=== PATIENT | male | born 1970 | race Caucasian/White ===

== ENCOUNTER 2019-09-26 16:43 | Observation (INO) | payer BC ==
[2019-09-26] MEDS ORDERED: ASPIRIN 81 MG PO STA (17:17)
[2019-09-26] MEDS ORDERED: SODIUM CHLORIDE 0.9% 500 ML 500 ML IV STA (17:17)
[2019-09-26 17:31] LABS: Basophils # (A) 0.2 k/uL (0-0.2); Basophils % (A) 3 %; Eosinophils # (A) 0.3 k/uL (0-0.7); Eosinophils % (A) 3 %; HCT 47.8 % (39.0-53.0); HGB 15.8 gm/dL (13.0-17.5); Lymphocytes # (A) 2.6 k/uL (1.0-4.8); Lymphocytes % (A) 28 %; MCH 31.1 pg (25.0-35.0); MCHC 32.9 g/dL (31.0-37.0); MCV 94.5 fL (80.0-100.0); Mean Platelet Volume 7.4; Monocytes # (A) 0.7 k/uL (0-1.0); Monocytes % (A) 7 %; Neutrophils # (A) 5.1 k/uL (1.3-7.7); Neutrophils % (A) 56 %; Platelet Count 315 k/uL (150-450); RBC 5.06 m/uL (4.30-5.90); RDW 12.7 % (11.5-15.5); WBC 9.1 k/uL (3.8-10.6)
--- NOTE | 2019-09-26 17:35 | ED ---
General Adult HPI - General Chief complaint: Chest Pain Stated complaint: high blood pressure/sob Time Seen by Provider: 09/26/19 17:03 Source: patient Mode of arrival: ambulatory Limitations: no limitations - History of Present Illness Initial comments: 49-year-old male patient presents to the emergency department today for evaluation of elevated blood pressure, dizziness, and generalized weakness. Patient states that he has been feeling unwell for the last couple of days. States he noticed his blood pressure was high. States that he did see his primary care physician this morning he started on additional blood pressure medication, lisinopril 5 mg. Patient states this did lower his blood pressure. Short time but that went right back up. Patient states he is having some mild chest tightness, pain to the left shoulder, and pain radiating down the left arm. He is reporting some tingling to his fingers. States he is having some mild shortness of breath with this and is reporting nausea. Patient denies any recent rash, fever, chills, abdominal pain, diarrhea, constipation, back pain, numbness, tingling, hematuria, dysuria, urinary urgency, urinary frequency, headache, visual changes, or any other complaints. - Related Data Allergies Allergy/AdvReac Type Severity Reaction Status Date / Time Sulfa (Sulfonamide Allergy Rash/Hives Verified 09/26/19 19:11 Antibiotics) Review of Systems ROS Statement: Those systems with pertinent positive or pertinent negative responses have been documented in the HPI. ROS Other: All systems not noted in ROS Statement are negative. Past Medical History Past Medical History: Hypertension History of Any Multi-Drug Resistant Organisms: None Reported Past Surgical History: No Surgical Hx Reported Past Psychological History: No Psychological Hx Reported Smoking Status: Never smoker Past Alcohol Use History: Occasional Past Drug Use History: None Reported General Exam Limitations: no limitations General appearance: alert, in no apparent distress, other (Physical well- developed, well-nourished adult male patient in no acute distress. Vital signs upon presentation are temperature 98.7F, pulse 72, respirations 16, blood pressure 178/99, pulse ox 97% on room air.) Eye exam: Present: normal appearance, PERRL, EOMI. Absent: scleral icterus, conjunctival injection, periorbital swelling ENT exam: Present: normal exam, normal oropharynx, mucous membranes moist Respiratory exam: Present: normal lung sounds bilaterally. Absent: respiratory distress, wheezes, rales, rhonchi, stridor Cardiovascular Exam: Present: regular rate, normal rhythm, normal heart sounds. Absent: systolic murmur, diastolic murmur, rubs, gallop, clicks GI/Abdominal exam: Present: soft, normal bowel sounds. Absent: distended, tenderness, guarding, rebound, rigid Neurological exam: Present: alert, oriented X3, CN II-XII intact Psychiatric exam: Present: normal affect, normal mood Skin exam: Present: warm, dry, intact, normal color. Absent: rash Course Vital Signs 09/26/19 09/26/19 16:46 18:32 Temperature 98.7 F Pulse Rate 72 58 L Respiratory 16 18 Rate Blood Pressure 178/99 131/87 O2 Sat by Pulse 97 96 Oximetry EKG Findings - EKG Comments: EKG Findings:: EKG obtained at 1658 shows sinus rhythm with PACs, PVC, ventricular rate is 71, RI interval 134, QRS duration 96, QT 406, QTc 441. There is mild ST depression noted in V2 and V3, ST elevation noted in aVR. No previous for comparison. Medical Decision Making - Medical Decision Making 49-year-old male patient presents to the emergency department today for evaluation of chest tightness, left shoulder pain, shortness of breath, dizziness. Patient also reports feeling rundown. Labs reviewed and are relatively unremarkable. Potassium was 3.1 and we did replace this orally. We will give 1 inch of Nitropaste. So GI prophylaxis. He'll be admitted for serial troponins and evaluation by cardiology in the morning. - Lab Data Result diagrams: 09/26/19 17:10 09/26/19 17:10 Lab Results 09/26/19 09/26/19 09/26/19 Range/Units 17:10 17:10 17:10 WBC 9.1 (3.8-10.6) k/uL RBC 5.06 (4.30-5.90) m/uL Hgb 15.8 (13.0-17.5) gm/dL Hct 47.8 (39.0-53.0) % MCV 94.5 (80.0-100.0) fL MCH 31.1 (25.0-35.0) pg MCHC 32.9 (31.0-37.0) g/dL RDW 12.7 (11.5-15.5) % Plt Count 315 (150-450) k/uL Neutrophils % 56 % Lymphocytes % 28 % Monocytes % 7 % Eosinophils % 3 % Basophils % 3 % Neutrophils # 5.1 (1.3-7.7) k/uL Lymphocytes # 2.6 (1.0-4.8) k/uL Monocytes # 0.7 (0-1.0) k/uL Eosinophils # 0.3 (0-0.7) k/uL Basophils # 0.2 (0-0.2) k/uL PT 9.8 (9.0-12.0) sec INR 0.9 (<1.2) APTT 22.9 (22.0-30.0) sec Sodium 137 (137-145) mmol/L Potassium 3.1 L (3.5-5.1) mmol/L Chloride 97 L (98-107) mmol/L Carbon Dioxide 32 H (22-30) mmol/L Anion Gap 8 mmol/L BUN 15 (9-20) mg/dL Creatinine 0.98 (0.66-1.25) mg/dL Est GFR (CKD-EPI)AfAm >90 (>60 ml/min/1.73 sqM) Est GFR (CKD-EPI)NonAf 90 (>60 ml/min/1.73 sqM) Glucose 120 H (74-99) mg/dL Calcium 9.7 (8.4-10.2) mg/dL Magnesium 2.0 (1.6-2.3) mg/dL Total Bilirubin 0.6 (0.2-1.3) mg/dL AST 48 (17-59) U/L ALT 59 H (4-49) U/L Alkaline Phosphatase 68 (38-126) U/L Troponin I (0.000-0.034) ng/mL Total Protein 7.6 (6.3-8.2) g/dL Albumin 4.4 (3.5-5.0) g/dL Urine Color Urine Appearance (Clear) Urine pH (5.0-8.0) Ur Specific [place] (1.001-1.035) Urine Protein (Negative) Urine Glucose (UA) (Negative) Urine Ketones (Negative) Urine Blood (Negative) Urine Nitrite (Negative) Urine Bilirubin (Negative) Urine Urobilinogen (<2.0) mg/dL Ur Leukocyte Esterase (Negative) Urine RBC (0-5) /hpf Ur Squamous Epith Cells (0-4) /hpf Amorphous Sediment (None) /hpf 09/26/19 09/26/19 Range/Units 17:10 17:10 WBC (3.8-10.6) k/uL RBC (4.30-5.90) m/uL Hgb (13.0-17.5) gm/dL Hct (39.0-53.0) % MCV (80.0-100.0) fL MCH (25.0-35.0) pg MCHC (31.0-37.0) g/dL RDW (11.5-15.5) % Plt Count (150-450) k/uL Neutrophils % % Lymphocytes % % Monocytes % % Eosinophils % % Basophils % % Neutrophils # (1.3-7.7) k/uL Lymphocytes # (1.0-4.8) k/uL Monocytes # (0-1.0) k/uL Eosinophils # (0-0.7) k/uL Basophils # (0-0.2) k/uL PT (9.0-12.0) sec INR (<1.2) APTT (22.0-30.0) sec Sodium (137-145) mmol/L Potassium (3.5-5.1) mmol/L Chloride (98-107) mmol/L Carbon Dioxide (22-30) mmol/L Anion Gap mmol/L BUN (9-20) mg/dL Creatinine (0.66-1.25) mg/dL Est GFR (CKD-EPI)AfAm (>60 ml/min/1.73 sqM) Est GFR (CKD-EPI)NonAf (>60 ml/min/1.73 sqM) Glucose (74-99) mg/dL Calcium (8.4-10.2) mg/dL Magnesium (1.6-2.3) mg/dL Total Bilirubin (0.2-1.3) mg/dL AST (17-59) U/L ALT (4-49) U/L Alkaline Phosphatase (38-126) U/L Troponin I <0.012 (0.000-0.034) ng/mL Total Protein (6.3-8.2) g/dL Albumin (3.5-5.0) g/dL Urine Color Light Yellow Urine Appearance Clear (Clear) Urine pH 7.0 (5.0-8.0) Ur Specific [place] 1.005 (1.001-1.035) Urine Protein Negative (Negative) Urine Glucose (UA) Negative (Negative) Urine Ketones Negative (Negative) Urine Blood Moderate (Negative) Urine Nitrite Negative (Negative) Urine Bilirubin Negative (Negative) Urine Urobilinogen 0.2 (<2.0) mg/dL Ur Leukocyte Esterase Negative (Negative) Urine RBC 10 H (0-5) /hpf Ur Squamous Epith Cells <1 (0-4) /hpf Amorphous Sediment Rare H (None) /hpf - Radiology Data Radiology results: report reviewed, image reviewed Two-view x-ray of the chest is obtained. Report is reviewed in its entirety. Impression by Dr. Metz shows normal chest Disposition Clinical Impression: Chest pain, Dizziness Disposition: ADMITTED IP TO THIS [facility] Condition: Serious Referrals: Patrick Lopes DO [Primary Care Provider] - 1-2 days Decision to Admit Reason: Admit from EC Decision Date: 09/26/19 Decision Time: 19:15
[2019-09-26 17:39] LABS: INR 0.9 (<1.2); Partial Thromboplastin Time 22.9 sec (22.0-30.0); Prothrombin Time 9.8 sec (9.0-12.0)
[2019-09-26 17:41] LABS: ALT 59 U/L (4-49); AST 48 U/L (17-59); African American GFR (CKD) >90 (>60 ml/min/1.73 sqM); Albumin 4.4 g/dL (3.5-5.0); Alkaline Phosphatase 68 U/L (38-126); Anion Gap 8 mmol/L; Blood Urea Nitrogen 15 mg/dL (9-20); Calcium 9.7 mg/dL (8.4-10.2); Carbon Dioxide 32 mmol/L (22-30); Chloride 97 mmol/L (98-107); Glucose 120 mg/dL (74-99); Non-African American GFR(CKD) 90 (>60 ml/min/1.73 sqM); Potassium 3.1 mmol/L (3.5-5.1); Sodium 137 mmol/L (137-145); Total Bilirubin 0.6 mg/dL (0.2-1.3); Total Protein 7.6 g/dL (6.3-8.2)
--- NOTE | 2019-09-26 17:49 | XR ---
EXAMINATION TYPE: XR chest 2V DATE OF EXAM: 09/26/2019 COMPARISON: NONE HISTORY: Chest pain TECHNIQUE: FINDINGS: Heart and mediastinum are normal. Lungs are clear. Diaphragm is normal. Bony thorax appears normal. Pulmonary vascularity is normal. There are chest leads. IMPRESSION: Normal chest
[2019-09-26 18:01] LABS: Amorphous Sediment,Urine Rare /hpf; RBC,Urine 10 /hpf (0-5); Squamous Epithelial Cell,Urine <1 /hpf (0-4)
[2019-09-26] MEDS ORDERED: POTASSIUM CHLORIDE ER 20 MEQ TAB.ER PO STA (18:04)
[2019-09-26 18:07] LABS: Color,Urine Light Yellow
[2019-09-26 18:08] LABS: Appearance,Urine Clear (Clear); Bilirubin,Urine Negative (Negative); Blood,Urine Moderate (Negative); Glucose,Urine (UA) Negative (Negative); Ketones,Urine Negative (Negative); Leukocyte Esterase,Urine Negative (Negative); Nitrite,Urine Negative (Negative); Protein,Urine Negative (Negative); Specific Gravity,Urine 1.005 (1.001-1.035); Urobilinogen,Urine 0.2 mg/dL (<2.0)
[2019-09-26] MEDS ORDERED: MORPHINE SULFATE 4 MG/ML SYRINGE IV PRN (19:10)
[2019-09-26] MEDS ORDERED: NALOXONE 0.4 MG/ML 1 ML VIAL IV PRN (19:10)
[2019-09-26] MEDS ORDERED: NITROGLYCERIN OINT 1 INCH/GM PACKET TOPICAL STA (19:13)
[2019-09-27] MEDS ORDERED: FAMOTIDINE 20 MG/2 ML VIAL IV SCH (09:00)
--- NOTE | 2019-09-27 12:05 | P.CRDCN ---
<Kelsie Chowdhury - Last Filed: 09/27/19 12:05> History of Present Illness History of present illness: This is Kelsie Chowdhury PA-C dictating a consult on this patient The patient was interviewed and examined by me as well as by Dr. Medina Case discussed with Dr. Medina and he agrees with the plan of care HPI Patient is a 49-year-old male with a past medical history significant for hypertension, borderline diabetes who presented with complaints of dizziness. 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 For the last several weeks he has been more short of breath on exertion such as with climbing the stairs. He also notes that he has been exercising and for the first 7-10 minute of his exercise he feels like he can't catch his breath. The feelings resolve as he continues to exercise. He doesn't have any chest pain with exertion. He was in religious on Thursday when he experienced the sudden onset of dizziness and lightheadedness. His vision started to blurring he felt like he was going to pass out but he didn't. No associated palpitations, shortness of breath or chest pain. He did feel a little nauseous. He had felt like this one time before when he was dehydrated. He went home and checked his blood pressure and it was "normal" and then he drank lots of water. He continued to feel "off" and checked his blood pressure again and this time it was elevated. He went to see his primary care doctor yesterday and he was started on lisinopril 5 mg. He was instructed to come to the emergency department if he didn't feel better after starting the new blood pressure medication. He decided to come to the emergency department for further evaluation. On his way to the emergency department, he started to experience left-sided shoulder pain with radiation down the left arm and tingling in his fingers. Symptoms resolved by the time he got emergency department. Upon presentation to the emergency department he was afebrile, pulse in the 70s, respirations 16, blood pressure in the 170s over 90s, oxygen saturation 97% on room air. EKG shows sinus mechanism with T-wave inversions and 0.[address] depressions in the precordial leads, nonspecific T wave changes inferiorly. Chest x-ray showed no acute process. Labs are significant for potassium of 3.1, troponin negative 3. Patient seen and examined in the emergency department. States his symptoms have completely resolved. Denies any chest pain, shortness of breath, dizziness, shoulder or arm pain. He is a lifelong smoker, denies dyslipidemia or family history of heart disease ROS: No fevers, chills or rigors, no cough, phlegm or expectoration, Positive for nausea, no vomiting or diarrhea, no hematuria, dysuria, no musculoskeletal complaints, no strokes or seizures, no skin lesions. EXAMINATION: Patient is afebrile, pulse in the 50s, respirations 16, blood pressure 110/70, oxygen saturation 97% on room air Patient seen and examined resting in bed, in no acute distress Lungs are clear to auscultation bilaterally, no wheezing rhonchi or crackles Heart is regular, S1 and S2 heard, no audible murmurs No lower extremity edema No visibly elevated JVD REVIEW OF LABS, ECG & MEDICAL DATA WBC 9.1, hemoglobin 15.8, platelets 315, potassium 3.1, BUN 15, creatinine 0.9, ALT 59 IMPRESSION / ASSESSMENT: Progressive dyspnea on exertion over the last few months Presyncopal episode, likely vasovagal Hypertension, blood pressure elevated upon presentation to the emergency department but is currently within normal limits Prediabetic PLAN: Check lipid panel Hemoglobin A1c He has a stress test scheduled as an outpatient for this Thursday, will complete his stress test here, further recommendations to follow Past Medical History Past Medical History: Hypertension History of Any Multi-Drug Resistant Organisms: None Reported Past Surgical History: No Surgical Hx Reported Past Psychological History: No Psychological Hx Reported Smoking Status: Never smoker Past Alcohol Use History: Occasional Past Drug Use History: None Reported Medications and Allergies Home Medications Medication Instructions Recorded Confirmed Type Chlorthalidone 25 mg PO DAILY 09/26/19 09/26/19 History Fluticasone Nasal [place] [Flonase 2 spr EA NOSTRIL DAILY PRN 09/26/19 09/26/19 History Nasal [place]] Lisinopril [Zestril] 5 - 10 mg PO DAILY 09/26/19 09/26/19 History Loratadine 10 mg PO DAILY 09/26/19 09/26/19 History Metaboup Plus 1 tab PO DAILY 09/26/19 09/26/19 History Multivitamins, Thera [Multivitamin 1 tab PO DAILY 09/26/19 09/26/19 History (formulary)] Testosterone Booster 1 tab PO DAILY 09/26/19 09/26/19 History Allergies Allergy/AdvReac Type Severity Reaction Status Date / Time Sulfa (Sulfonamide Allergy Rash/Hives Verified 09/26/19 19:11 Antibiotics) Physical Exam Vitals: Vital Signs Temp Pulse Resp BP Pulse Ox 09/27/19 08:14 97.6 F 56 L 16 110/70 97 09/27/19 06:09 98.1 F 55 L 16 116/67 97 09/27/19 03:00 58 L 16 112/76 97 09/26/19 23:00 61 16 115/66 94 L 09/26/19 21:53 77 18 135/56 95 09/26/19 20:14 65 16 118/52 95 09/26/19 19:47 63 18 116/44 97 09/26/19 18:32 58 L 18 131/87 96 09/26/19 16:46 98.7 F 72 16 178/99 97 Intake and Output 09/26/19 09/27/19 09/27/19 22:59 06:59 14:59 Intake Total 480 Balance 480 Intake: Intake, IV Titration 0 Amount Sodium Chloride 0.9% 500 0 ml 500 ml @ 999 mls/hr IV .Q31M STA Rx#:[id number] Oral 480 Blood Product 0 Other: # Voids 1 Weight 113.398 kg Results 09/26/19 17:10 09/26/19 17:10 Cardiac Enzymes 09/26/19 09/26/19 09/26/19 Range/Units 17:10 17:10 23:32 AST 48 (17-59) U/L Troponin I <0.012 <0.012 (0.000-0.034) ng/mL 09/27/19 Range/Units 06:25 AST (17-59) U/L Troponin I <0.012 (0.000-0.034) ng/mL Coagulation 09/26/19 Range/Units 17:10 PT 9.8 (9.0-12.0) sec APTT 22.9 (22.0-30.0) sec CBC 09/26/19 Range/Units 17:10 WBC 9.1 (3.8-10.6) k/uL RBC 5.06 (4.30-5.90) m/uL Hgb 15.8 (13.0-17.5) gm/dL Hct 47.8 (39.0-53.0) % Plt Count 315 (150-450) k/uL Comprehensive Metabolic Panel 09/26/19 Range/Units 17:10 Sodium 137 (137-145) mmol/L Potassium 3.1 L (3.5-5.1) mmol/L Chloride 97 L (98-107) mmol/L Carbon Dioxide 32 H (22-30) mmol/L BUN 15 (9-20) mg/dL Creatinine 0.98 (0.66-1.25) mg/dL Glucose 120 H (74-99) mg/dL Calcium 9.7 (8.4-10.2) mg/dL AST 48 (17-59) U/L ALT 59 H (4-49) U/L Alkaline Phosphatase 68 (38-126) U/L Total Protein 7.6 (6.3-8.2) g/dL Albumin 4.4 (3.5-5.0) g/dL Current Medications Generic Name Dose Route Start Last Admin Trade Name Freq PRN Reason Stop Dose Admin Famotidine 20 mg 09/27/19 09:00 09/27/19 09:07 Pepcid IV 20 mg DAILY BETHANY Administration Morphine Sulfate 4 mg 09/26/19 19:10 Morphine Sulfate (Inj) IV Q4HR PRN Severe Pain Naloxone HCl 0.2 mg 09/26/19 19:10 Narcan IV Q2M PRN Opioid Reversal Intake and Output 09/26/19 09/27/19 09/27/19 22:59 06:59 14:59 Intake Total 480 Balance 480 Intake: Intake, IV Titration 0 Amount Sodium Chloride 0.9% 500 0 ml 500 ml @ 999 mls/hr IV .Q31M STA Rx#:[id number] Oral 480 Blood Product 0 Other: # Voids 1 Weight 113.398 kg 09/26/19 17:10 09/26/19 17:10 <Deng Medina - Last Filed: 09/27/19 12:07> History of Present Illness History of present illness: Patient interviewed and examined Discussed with Kelsie Chowdhury PAC Patient was in religious when he became nauseous and dizzy and lightheaded He's had a similar episode in religious before He's had a similar episode coming out of the sauna and when he was dehydrated ECG shows borderline ST segment depression in the precordial leads consistent with voltage abnormalities from hypertension Likely uncontrolled hypertension Usual blood pressure at home is around 150/88 mmHg Prediabetes Increased BMI Plan Exercise stress echo with Definity contrast Lipid panel Hemoglobin A1c Avoid diuretics Discontinue nitrates Treat hypertension with split doses of lisinopril Explained to the patient that his symptoms are consistent with vasovagal syncope Please see full dictation by Kelsie Chowdhury Physical Exam Vitals: Vital Signs Temp Pulse Resp BP Pulse Ox 09/27/19 08:14 97.6 F 56 L 16 110/70 97 09/27/19 06:09 98.1 F 55 L 16 116/67 97 09/27/19 03:00 58 L 16 112/76 97 09/26/19 23:00 61 16 115/66 94 L 09/26/19 21:53 77 18 135/56 95 09/26/19 20:14 65 16 118/52 95 09/26/19 19:47 63 18 116/44 97 09/26/19 18:32 58 L 18 131/87 96 09/26/19 16:46 98.7 F 72 16 178/99 97 Intake and Output 09/26/19 09/27/19 09/27/19 22:59 06:59 14:59 Intake Total 480 Balance 480 Intake: Intake, IV Titration 0 Amount Sodium Chloride 0.9% 500 0 ml 500 ml @ 999 mls/hr IV .Q31M STA Rx#:[id number] Oral 480 Blood Product 0 Other: # Voids 1 Weight 113.398 kg Results 09/26/19 17:10 09/26/19 17:10 Cardiac Enzymes 09/26/19 09/26/19 09/26/19 Range/Units 17:10 17:10 23:32 AST 48 (17-59) U/L Troponin I <0.012 <0.012 (0.000-0.034) ng/mL 09/27/19 Range/Units 06:25 AST (17-59) U/L Troponin I <0.012 (0.000-0.034) ng/mL Coagulation 09/26/19 Range/Units 17:10 PT 9.8 (9.0-12.0) sec APTT 22.9 (22.0-30.0) sec CBC 09/26/19 Range/Units 17:10 WBC 9.1 (3.8-10.6) k/uL RBC 5.06 (4.30-5.90) m/uL Hgb 15.8 (13.0-17.5) gm/dL Hct 47.8 (39.0-53.0) % Plt Count 315 (150-450) k/uL Comprehensive Metabolic Panel 09/26/19 Range/Units 17:10 Sodium 137 (137-145) mmol/L Potassium 3.1 L (3.5-5.1) mmol/L Chloride 97 L (98-107) mmol/L Carbon Dioxide 32 H (22-30) mmol/L BUN 15 (9-20) mg/dL Creatinine 0.98 (0.66-1.25) mg/dL Glucose 120 H (74-99) mg/dL Calcium 9.7 (8.4-10.2) mg/dL AST 48 (17-59) U/L ALT 59 H (4-49) U/L Alkaline Phosphatase 68 (38-126) U/L Total Protein 7.6 (6.3-8.2) g/dL Albumin 4.4 (3.5-5.0) g/dL Current Medications Generic Name Dose Route Start Last Admin Trade Name Ronnieq PRN Reason Stop Dose Admin Famotidine 20 mg 09/27/19 09:00 09/27/19 09:07 Pepcid IV 20 mg DAILY BETHANY Administration Morphine Sulfate 4 mg 09/26/19 19:10 Morphine Sulfate (Inj) IV Q4HR PRN Severe Pain Naloxone HCl 0.2 mg 09/26/19 19:10 Narcan IV Q2M PRN Opioid Reversal Intake and Output 09/26/19 09/27/19 09/27/19 22:59 06:59 14:59 Intake Total 480 Balance 480 Intake: Intake, IV Titration 0 Amount Sodium Chloride 0.9% 500 0 ml 500 ml @ 999 mls/hr IV .Q31M STA Rx#:[id number] Oral 480 Blood Product 0 Other: # Voids 1 Weight 113.398 kg 09/26/19 17:10 09/26/19 17:10
[2019-09-27 12:10] LABS: Cholesterol 173 mg/dL (<200); HDL Cholesterol 45 mg/dL (40-60); LDL Cholesterol,Calculated 96 mg/dL (0-99); Triglycerides 161 mg/dL (<150)
[2019-09-27 13:06] VITALS: RESP 18
[2019-09-27] MEDS ORDERED: FLUTICASONE 50MCG/SPRAY NASAL 16GM EA NOSTRIL PRN (19:01)
[2019-09-27] MEDS ORDERED: ALPRAZolam 0.25 MG TAB PO PRN (19:19)
[2019-09-27] MEDS ORDERED: TEMAZEPAM 15 MG CAP PO PRN (19:19)
[2019-09-27] MEDS ORDERED: ACETAMINOPHEN TAB 500 MG TAB PO PRN (19:19)
--- NOTE | 2019-09-27 20:47 | HP ---
HISTORY AND PHYSICAL DATE OF SERVICE: 09/27/2019 CHIEF COMPLAINT: Chest pain. HISTORY OF PRESENT ILLNESS: This 49-year-old gentleman with a past medical history of multiple medical problems, including hypertension, history of vasectomy, history of LASIK eye surgery, being followed by Dr. Patrick Lopes in the outpatient setting, was complaining of chest pain. The pain was mostly situated in the left side of the chest. The patient also had elevated blood pressure, dizziness and some generalized weakness. The patient had some left arm discomfort, also. The patient came to [facility] and was admitted for further evaluation and treatment. There is no history of any associated sweating or palpitations. No history of radiation of pain elsewhere. At the time of admission the patient was found to have hypokalemia. Otherwise CO2 was 32. ALT was 59. Troponins were negative. Triglycerides 161. UA showed 10 RBCs. The patient also had EKG which was reviewed and showed occasional PVCs and some ST-T changes. There is no history of any fever, rigor or chills. No history of headache, loss of consciousness, seizures at this time. PAST MEDICAL HISTORY: History of hypertension, history of vasectomy. HOME MEDICATIONS: 1. Zestril 5 to 10 mg p.o. daily. 2. Multivitamins 1 p.o. daily. 3. Flonase 2 sprays daily p.r.n. 4. Chlorthalidone 25 mg p.o. daily. 5. Testosterone booster 1 p.o. daily. 6. Metaboup Plus 1 p.o. daily. 7. Loratadine 10 mg p.o. daily. ALLERGIES: SULFA. FAMILY HISTORY: No history of heart disease or strokes in the family. SOCIAL HISTORY: No history of smoking. Occasional alcohol intake. REVIEW OF SYSTEMS: ENT: No diminished hearing. No diminished vision. CARDIOVASCULAR SYSTEM: As mentioned earlier. RESPIRATORY SYSTEM: As mentioned earlier. GI: No nausea, vomiting. : No dysuria or retention. NERVOUS SYSTEM: No numbness, weakness. ALLERGY/IMMUNOLOGY: No asthma, hayfever. MUSCULOSKELETAL: As mentioned earlier. HEMATOLOGY/ONCOLOGY: No history of anemia. ENDOCRINE: No history of diabetes, hypothyroidism. CONSTITUTIONAL: As mentioned earlier. DERMATOLOGY: Negative. RHEUMATOLOGY: Negative. PSYCHIATRY: As mentioned earlier. PHYSICAL EXAMINATION: Patient is alert, oriented x3. Pulse is 60, blood pressure 120/76, respiration 18, temperature 98.2, pulse ox 94% on room air. HEENT: Conjunctivae normal. NECK: No jugular venous distention. CARDIOVASCULAR SYSTEM: S1, S2 muffled. RESPIRATORY SYSTEM: Breath sounds diminished at the bases. A few scattered rhonchi and crackles. ABDOMEN: Soft, non-tender. No mass palpable. LEGS: No edema. No swelling. NERVOUS SYSTEM: Higher functions as mentioned earlier. Moves all 4 limbs. No focal motor or sensory deficit. LYMPHATICS: No lymph node palpable in neck, axillae or groin. SKIN: No ulcer, rash, bleeding. JOINTS: No active deforming arthropathy. LABS: Labs at this time show CBC within normal limits. Sodium 137, potassium 3.1. CO2 is 32. ASSESSMENT: 1. Chest pain; possible unstable angina. 2. History of ST-T changes on the EKG. 3. Shortness of breath and dizziness for evaluation. 4. Increased ALT. 5. Increased random blood sugar. 6. Hypokalemia. 7. History of hypertension. 8. History of vasectomy. 9. Obesity with body mass index of 34.9. 10.FULL CODE. RECOMMENDATIONS AND DISCUSSION: In this 49-year-old gentleman who presented with multiple complex medical issues, we will monitor the patient closely, continue the current medications, continue with symptomatic treatment. Will follow closely with Cardiology. The patient had some ST-T changes. Initial troponins were negative. Unstable angina protocol. Patient would require either a stress test or cardiac cath. Will follow the patient closely with Cardiology. Further recommendations to follow. A chest x-ray was also done which did not show any acute abnormality. Will continue to monitor. Further recommendations to follow. I would also recommend a spiral CT of the chest to rule out the possibility of pulmonary embolism. Overall, guarded prognosis because of multiple complex medical issues. A copy of this dictation is being forwarded to Dr. Lopes, who is the primary physician. MMRAMBOL / IJN: [id number] /
[2019-09-27] MEDS: LORATADINE 10 MG TAB PO SCH (21:21)
--- NOTE | 2019-09-27 23:33 | CT ---
EXAMINATION TYPE: CT angio chest DATE OF EXAM: 09/27/2019 COMPARISON: None HISTORY: Patient presents with chest pain. CT DLP: 1020.6 mGycm Automated exposure control for dose reduction was used. CONTRAST: Performed with IV Contrast, patient injected with 60mL mL of Isovue 370. There are 3-D post processed images. FINDINGS: There is some patchy linear density in the lower lung pineda. There is no pleural effusion. There is no evidence of a pulmonary mass. There is no mediastinal adenopathy. There are small paratracheal lym ph nodes that measure up to 6 mm. There are no hilar masses. Thoracic aorta is intact. There is no an eurysm or dissection. There is normal contrast opacification of the pulmonary arteries. I see no fill ing defect. The bony thorax is intact. Upper abdominal soft tissues are intact. IMPRESSION: No evidence of pulmonary embolism. Minimal subsegmental atelectasis at the lung bases.
[2019-09-28 07:12] LABS: Basophils # (A) 0.1 k/uL (0-0.2); Basophils % (A) 1 %; Eosinophils # (A) 0.2 k/uL (0-0.7); Eosinophils % (A) 3 %; HCT 44.7 % (39.0-53.0); Lymphocytes # (A) 2.2 k/uL (1.0-4.8); Lymphocytes % (A) 30 %; MCH 31.5 pg (25.0-35.0); MCHC 33.5 g/dL (31.0-37.0); Mean Platelet Volume 7.3; Monocytes # (A) 0.5 k/uL (0-1.0); Monocytes % (A) 7 %; Neutrophils % (A) 56 %; Platelet Count 296 k/uL (150-450); RBC 4.75 m/uL (4.30-5.90); RDW 12.7 % (11.5-15.5); WBC 7.2 k/uL (3.8-10.6)
[2019-09-28 07:26] VITALS: PULSE 60; TEMP 98.2
[2019-09-28] MEDS ORDERED: PANTOPRAZOLE 40 MG TABLET PO SCH (07:30)
[2019-09-28 07:32] LABS: African American GFR (CKD) >90 (>60 ml/min/1.73 sqM); Anion Gap 8 mmol/L; Blood Urea Nitrogen 16 mg/dL (9-20); Calcium 9.4 mg/dL (8.4-10.2); Carbon Dioxide 30 mmol/L (22-30); Chloride 100 mmol/L (98-107); Glucose 97 mg/dL (74-99); Non-African American GFR(CKD) >90 (>60 ml/min/1.73 sqM); Potassium 3.7 mmol/L (3.5-5.1); Sodium 138 mmol/L (137-145)
[2019-09-28] MEDS ORDERED: MULTIVITAMINS, THERA 1 EACH TAB PO SCH (09:00)
[2019-09-28] MEDS ORDERED: CHLORTHALIDONE 25 MG TAB PO SCH (09:00)
[2019-09-28] MEDS ORDERED: FAMOTIDINE 20 MG TAB PO SCH (09:00)
[2019-09-28] MEDS ORDERED: LISINOPRIL 5 MG TAB PO SCH ×2 (09:00→21:00)
[2019-09-28 11:21] VITALS: BP 131/87
[2019-09-28] MEDS: LORATADINE 10 MG TAB PO SCH (12:00)
--- NOTE | 2019-09-28 12:42 | P.PN ---
Subjective This is a pleasant 49-year-old male past medical history significant for hypertension. He is seen and examined in no acute distress. She has had no further symptoms of dizziness, chest pain or shortness of breath. Blood pressure 131/87 heart rate 60 afebrile maintaining oxygen saturation on room air. Laboratory data reviewed, CBC unremarkable, sodium 138, potassium 3.7, creatinine 0.93, LDL 96, HDL 45, triglycerides 173 and total cholesterol 161. Cardiac enzymes negative 3. Currently maintained on lisinopril 5 mg daily and chlorthalidone 25 mg daily. GENERAL: Well-appearing, well-nourished and in no acute distress. NECK: Supple without JVD or thyromegaly. LUNGS: Breath sounds clear to auscultation bilaterally. Respiration equal and unlabored. No wheezes, rales or rhonchi. HEART: Regular rate and rhythm without murmurs, rubs or gallops. S1 and S2 heard. EXTREMITIES: Normal range of motion, no edema. No clubbing or cyanosis. Peripheral pulses intact. ASSESSMENT Progressive dyspnea on exertion Pre-syncope, vasovagal Hypertension PLAN Stress echocardiogram completed and reviewed. Stable for discharge home, follow up in the office with Dr. Medina in 1-2 weeks. Nurse Practitioner note has been reviewed, I agree with a documented findings and plan of care. Patient was seen and examined. Objective - Vital Signs Vital signs: Vital Signs Temp 98.2 F 09/28/19 11:20 Pulse 60 09/28/19 11:20 Resp 18 09/28/19 11:20 BP 131/87 09/28/19 11:20 Pulse Ox 98 09/28/19 11:20 Intake & Output 09/27/19 09/28/19 09/28/19 18:59 06:59 18:59 Intake Total 1040 Balance 1040 Weight 113.398 kg 113.4 kg Intake: Oral 440 Other 600 Other: Voiding Method Toilet Toilet Toilet # Voids 1 - Labs CBC & Chem 7: 09/28/19 06:25 09/28/19 06:25
--- NOTE | 2019-09-28 13:14 | P.DS ---
Providers Date of admission: 09/26/19 19:12 Attending physician: Ruby aFn Consults: 09/26/19 19:12 Consult Physician Routine Consulting Provider: [facility] Consult Reason/Comments: Chest pain; Dizziness Do you want consulting provider notified?: Yes [facility] Course: Patient was admitted for chest pain rule out acute current syndromes patient will undergo stress test if that's negative patient will be discharged today. Patient was also having dizziness which I believe is secondary to hypotension patient blood pressure is low normal when he was recently started on lisinopril patient blood pressure has calmed down as low as the 100s systolic because of which asked him to check the blood pressure at home take it to PCP and lisinopril will be held the patient is on chlorthalidone for long time which will be continued and agents potassium is low because of chlorthalidone patient will be discharged on 20 mg of potassium. He extensive counseling regarding appropriate way of checking blood pressure was done. PHYSICAL EXAMINATION: GENERAL: The patient is alert and oriented x3, not in any acute distress. Well developed, well nourished. HEENT: Pupils are round and equally reacting to light. EOMI. No scleral icterus. No conjunctival pallor. Normocephalic, atraumatic. No pharyngeal erythema. No thyromegaly. CARDIOVASCULAR: S1 and S2 present. No murmurs, rubs, or gallops. PULMONARY: Chest is clear to auscultation, no wheezing or crackles. ABDOMEN: Soft, nontender, nondistended, normoactive bowel sounds. No palpable organomegaly. MUSCULOSKELETAL: No joint swelling or deformity. EXTREMITIES: No cyanosis, clubbing, or pedal edema. NEUROLOGICAL: Gross neurological examination did not reveal any focal deficits. SKIN: No rashes. Please refer to Dr. Gale's note for further details of hospitalization course and other medical problems that was addressed Patient Condition at Discharge: Serious Plan - Discharge Summary Discharge Rx Participant: No New Discharge Prescriptions: New Potassium Chloride ER [K-Dur 20] 20 meq PO DAILY #30 tab Lisinopril [Zestril] 5 mg PO BID #180 tab Discontinued Chlorthalidone 25 mg PO DAILY Lisinopril [Zestril] 5 - 10 mg PO DAILY No Action Metaboup Plus 1 tab PO DAILY Testosterone Booster 1 tab PO DAILY Fluticasone Nasal [place] [Flonase Nasal [place]] 2 spr EA NOSTRIL DAILY PRN PRN Reason: Allergy Symptoms Loratadine 10 mg PO DAILY Multivitamins, Thera [Multivitamin (formulary)] 1 tab PO DAILY Discharge Medication List Fluticasone Nasal [place] [Flonase Nasal [place]] 2 spr EA NOSTRIL DAILY PRN 09/26/19 [History] Loratadine 10 mg PO DAILY 09/26/19 [History] Metaboup Plus 1 tab PO DAILY 09/26/19 [History] Multivitamins, Thera [Multivitamin (formulary)] 1 tab PO DAILY 09/26/19 [H istory] Testosterone Booster 1 tab PO DAILY 09/26/19 [History] Lisinopril [Zestril] 5 mg PO BID #180 tab 09/28/19 [Rx] Potassium Chloride ER [K-Dur 20] 20 meq PO DAILY #30 tab 09/28/19 [Rx] Follow up Appointment(s)/Referral(s): Deng Medina MD [STAFF PHYSICIAN] - 10/12/19 8:45 am (Follow-up with Dr. Medina/Kelsie Chowdhury/Faye Goss within 1-2 weeks Follow-up with Faye Goss on October 11 at 8:45 AM) Patrick Lopes DO [Primary Care Provider] - 3 Days Patient Instructions/Handouts: Chest Pain (DC) Discharge Disposition: HOME SELF-CARE
--- NOTE | 2019-09-28 13:38 | ECHOS ---
STRESS ECHOCARDIOGRAM DATE OF SERVICE: 09/28/2019 LUMASON: 2 vial INDICATIONS: Chest pain. MEDICATIONS: BASELINE HEART RATE: 66 BASELINE BLOOD PRESSURE: 142/100 MAXIMUM HEART RATE: 166 MAXIMUM BLOOD PRESSURE: 219/114 85% MPHR: 144 100% MPHR: 169 METS: 11.4 MAXIMUM STAGE REACHED: IV TOTAL EXERCISE TIME: 10 minutes CLINICAL INFORMATION: Baseline heart rate 66 beats per minute. Baseline blood pressure 140/2 mmHg. Baseline 12-lead ECG shows normal sinus rhythm, normal cardiac intervals, normal ST segments. The patient exercised on a Jeffery protocol for 10 minutes achieving a peak heart rate of 166 beats per minute, hypertensive response to exercise. A [address]-depression was noted into recovery. Occasional PVCs and ventricular couplets were noted. Baseline 2D echo images were suboptimal; therefore, Definity contrast was used. However, despite this the image quality was suboptimal with off-axis views. However, there was were no echocardiographic evidence for ischemia. No wall motion abnormalities noted during peak exercise or during recovery. IMPRESSION: 1. No echocardiographic evidence for ischemia; however, images suboptimal despite Definity. 2. A [address]-depression. 3. Hypertensive response to exercise. PLAN: 1. Suggest stop chlorthalidone since he has a history of vasovagal syncope recurrent episodes. 2. Increase lisinopril 5 mg twice daily and further maximize but use staggered and split doses of antihypertensive therapies. He does have history of several episodes of presyncope (vasovagal syncope). MMODL / IJN: [id number] /
== END 2019-09-28 13:30 | disposition home or self-care (01) ==
LOC: EC 16:43 → 1SOBS 19:12
PROVIDERS: ADMIT Internal Medicine; ATTEND Internal Medicine
DX: R07.89 Other chest pain (principal); I95.9 Hypotension, unspecified; R94.31 Abnormal electrocardiogram [ECG] [EKG]; E87.6 Hypokalemia; R06.02 Shortness of breath; R74.0 Nonspecific elevation of levels of transaminase and lactic acid dehydrogenase [LDH]; R73.9 Hyperglycemia, unspecified; I10 Essential (primary) hypertension; Z98.52 Vasectomy status; M25.511 Pain in right shoulder; Z88.2 Allergy status to sulfonamides; I49.1 Atrial premature depolarization; I49.3 Ventricular premature depolarization; Z79.899 Other long term (current) drug therapy; Z98.890 Other specified postprocedural states; E66.9 Obesity, unspecified; Z68.34 Body mass index [BMI] 34.0-34.9, adult; R06.09 Other forms of dyspnea; R73.03 Prediabetes; J98.11 Atelectasis
CPT/HCPCS: 96361 ×2; 96374; 99285; 36415; 93005; 93351; 80061; 80053; 80048; 83735; 84484 ×2; 85025 ×2; 85610; 85730; 81001; 83036; 71046; 71275; G0378 ×3; Q9950; Q9967

== ENCOUNTER → 2022-11-11 | Outpatient (CLI) | payer BC ==
--- NOTE | 2022-11-11 09:05 | MR ---
EXAMINATION TYPE: MR lumbar spine wo con DATE OF EXAM: 11/11/2022 COMPARISON: Radiograph 10/21/2022 HISTORY: 52-year-old male M51.36, M5451, Low back pain into left buttocks TECHNIQUE: Multiplanar, multisequence images of the lumbar spine were acquired without IV contrast. FINDINGS: There are bilateral L5 pars defects. This results in grade 1/grade 2 anterolisthesis at L5-S1. Remain ing alignment is maintained. Mild heterogeneous marrow signal without suspicious bone marrow placement. Some scattered Modic type II fatty endplate changes present suggesting that T12-L1. Mild to moderate multilevel degenerative disc disease with desiccated and bulging discs. Mild disc sp deuce narrowing at L5-S1. Hypertrophic facet arthropathy and ligamentum flavum thickening mid to lower lumbar spine. Conus medullaris is normal. Vertebral body heights are preserved. At T12-L1, no spinal canal or foraminal stenosis. At L1-L2, no spinal canal or neuroforaminal stenosis. At L2-L3, minimal bulging disc and facet arthropathy. This results in minimal inferior foraminal narr owing on both sides. No spinal canal stenosis. At L3-L4, there is diffuse disc bulge with superimposed right paracentral disc extrusion. Correspondi ng ligamentum flavum thickening and facet arthropathy. Does contribute to overall mild to moderate sp inal canal stenosis and some right lateral recess stenosis. There is moderate right neuroforaminal st enosis at this level. At L4-L5, there is mild disc bulge, ligamentum flavum thickening, and facet arthropathy. This results in mild overall narrowing of the spinal canal. Moderate right neuroforaminal stenosis. At L5-S1, bilateral L5 pars defects with grade 1, grade 2 anterolisthesis. Uncovering of the posterio r intervertebral disc. Hypertrophic facet arthropathy and ligamentum flavum thickening is present. No significant spinal canal stenosis. Changes result in moderate bilateral neuroforaminal stenosis with probable abutment of the exiting right greater than left L5 nerve roots. No prevertebral paravertebral soft tissue body. IMPRESSION: 1. Mild to moderate multilevel degenerative disc disease. Hypertrophic facet arthropathy and ligament um flavum thickening especially mid to lower lumbar spine. 2. Bilateral L5 pars defects with a grade 1/grade 2 anterolisthesis at L5-S1. Mild overall spinal can al stenosis at this level with moderate bilateral neuroforaminal stenosis. 3. Diffuse disc bulge at L3-L4 with superimposed right paracentral disc extrusion. This contribute to mild to moderate spinal canal stenosis, right lateral recess stenosis, and moderate right neural for aminal stenosis. 4. Mild overall spinal canal stenosis at L4-L5. Moderate right neuroforaminal stenosis at this level.
== END | disposition home or self-care (01) ==
LOC: RADMRIMAIN 07:14
PROVIDERS: ATTEND Family Medicine
DX: M47.816 Spondylosis without myelopathy or radiculopathy, lumbar region (principal); M51.36 Other intervertebral disc degeneration, lumbar region; M48.061 Spinal stenosis, lumbar region without neurogenic claudication; M99.73 Connective tissue and disc stenosis of intervertebral foramina of lumbar region; M51.26 Other intervertebral disc displacement, lumbar region; M43.17 Spondylolisthesis, lumbosacral region
CPT/HCPCS: 72148

== ENCOUNTER 2022-11-24 06:31 | Day surgery (SDC) | payer BC ==
[2022-11-19 11:46] VITALS: BMI 34.4
[~2022-11-24 06:31] MED LIST: ALPRAZolam 0.25 MG TAB PO PRN; ALPRAZolam 0.5 MG TAB PO PRN; HEPARIN SODIUM,PORCINE 10,000 UNIT in SODIUM CHLORIDE 0.9% 1,000 ML IRRIGATION PRN; HEPARIN SODIUM,PORCINE 2,500 UNIT in SODIUM CHLORIDE 0.9% 250 ML IRRIGATION PRN; NITROGLYCERIN SL TABS 0.4 MG TAB SUBLINGUAL PRN; SODIUM CHLORIDE 0.9% 1,000 ML in EMPTY BAG 1 BAG IV SCH
[2022-11-24] MEDS ORDERED: SODIUM CHLORIDE 0.9% 1,000 ML IV ONE ×2 (06:33)
[2022-11-24] MEDS ORDERED: ATORVASTATIN 80 MG TAB PO ONE (07:00)
[2022-11-24] MEDS ORDERED: ASPIRIN 325 MG TAB PO ONE (07:00)
[2022-11-24 07:04] VITALS: RESP 16; TEMP 98
[2022-11-24] MEDS ORDERED: VERAPAMIL 2.5 MG/ML 2 ML AMP ONE (07:15)
[2022-11-24] MEDS ORDERED: HEPARIN SODIUM 1,000 UN/ML (10ML VL) ONE (07:26)
[2022-11-24] MEDS ORDERED: fentaNYL (PF) 50 MCG/ML 2 ML AMP ONE (07:26)
[2022-11-24] MEDS ORDERED: MIDAZOLAM 2 MG/2 ML VIAL IV ONE (07:47)
[2022-11-24] MEDS ORDERED: fentaNYL (PF) 50 MCG/ML 2 ML AMP IV ONE (07:47)
[2022-11-24] MEDS ORDERED: LIDOCAINE 1% INJ 10MG/ML (5 ML VIAL-PF) SQ ONE (07:48)
[2022-11-24] MEDS ORDERED: VERAPAMIL SYRINGE (5 MG/10 ML) INTRAARTER ONE (07:49)
[2022-11-24] MEDS ORDERED: HEPARIN SODIUM 1,000 UN/ML (10ML VL) IV ONE (07:53)
[2022-11-24] MEDS ORDERED: IOPAMIDOL-370 125ML BTL INJ ONE (08:01)
[2022-11-24] MEDS ORDERED: RX INFO: IV CONTRAST WAS GIVEN 1 EACH MISC MISCELLANE PRN (08:10)
--- NOTE | 2022-11-24 08:12 | P.CARDCATH ---
Description of Procedure: PROCEDURES PERFORMED: Left heart catheterization, bilateral coronary angiography INDICATION: Chest pain, shortness breath, abnormal CT calcium score CONSENT:I have discussed the risks, benefits and alternative therapies for the above-mentioned procedure and for both sedation/analgesia as well as necessary blood product administration, if indicated, as they pertain to this patient. The patient has indicated understanding and acceptance of the risks and procedures discussed. PROCEDURE: After the risks, benefits and alternatives of the above mentioned procedure explained in detail with the patient, informed consent was obtained. Patient was taken to the catheterization lab and prepped and draped in usual fashion. 1% lidocaine was used to anesthetize the right radial artery. A 6- [place] sheath was placed in the right radial artery using modified Seldinger technique. Left coronary angiography was performed with a 5-[place] JL 3.5 catheter and right coronary angiography was performed with a 5-[place] JR5 catheter in various views. A 5-[place] FR5 catheter was inserted into the left ventricle and pressure measurements were obtained. The right radial sheath was removed and a TR band was placed with hemostasis achieved. The patient tolerated the procedure well. Patient was transported back to the post catheterization holding area in stable condition. Conscious Sedation: Patient was monitored under the direct supervision of myself for conscious sedation using Versed and fentanyl for a total duration of 15 minutes HEMODYNAMICS: Aorta: 95/56 LV: 98/5, LVEDP 16 SELECTIVE CORONARY ARTERIOGRAPHY: LEFT MAIN: The left main is a large caliber vessel which trifurcates into the LAD, ramus and circumflex. There is no significant stenosis. LEFT ANTERIOR DESCENDING CORONARY ARTERY: LAD is a large caliber vessel which wraps around to the apex. There is a proximal LAD 20-30% stenosis and mild luminal irregularities of the mid LAD RAMUS INTERMEDIUS: The ramus is a moderate caliber vessel with no significant stenosis. LEFT CIRCUMFLEX CORONARY ARTERY: Left circumflex is a moderate caliber vessel without significant stenosis. RIGHT CORONARY ARTERY: The right coronary artery is a large caliber vessel which gives off a PDA and PLV branch and is the dominant vessel. There is a proximal RCA 40% stenosis and otherwise mild luminal irregularities FINAL IMPRESSION: 1. CAD as described above including 40% proximal RCA stenosis, mid LAD 20-30% stenosis 2. Normal left sided filling pressures PLAN: 1. Aggressive risk factor modification per most recent ACC/AHA guidelines. 2. If patient having more significant angina-type symptoms, consider antianginals or further ischemic workup with stress testing. Treat RCA medically. If still having significant symptoms may consider iFR 3. Follow-up in the office in 1-2 weeks.
[2022-11-24] MEDS ORDERED: SODIUM CHLORIDE 0.9% 1,000 ML IV SCH (08:15)
[2022-11-24 10:26] VITALS: BP 101/55
[2022-11-24 11:19] VITALS: PULSE 55
== END 2022-11-24 11:22 | disposition home or self-care (01) ==
LOC: CATHCVL 06:31
PROVIDERS: ATTEND Internal Medicine
DX: I25.10 Atherosclerotic heart disease of native coronary artery without angina pectoris (principal); I10 Essential (primary) hypertension; E78.5 Hyperlipidemia, unspecified; R73.03 Prediabetes; E66.9 Obesity, unspecified; Z68.34 Body mass index [BMI] 34.0-34.9, adult; Z79.899 Other long term (current) drug therapy; Z88.2 Allergy status to sulfonamides
CPT/HCPCS: 93458; C1769; C1894; J2250; J2001; J3010; J1644; Q9967

== ENCOUNTER 2023-05-21 12:50 | Observation (INO) | payer BC ==
--- NOTE | 2023-05-21 13:35 | ED ---
Fall HPI - General Source: patient, RN notes reviewed Mode of arrival: wheelchair Limitations: no limitations - History of Present Illness MD Complaint: fall <Jazmin Sifuentes - Last Filed: 05/21/23 13:35> <Zoila Nam - Last Filed: 05/22/23 00:32> - General Chief Complaint: Fall Stated Complaint: Fall Time Seen by Provider: 05/21/23 13:32 - History of Present Illness Initial Comments: This is a 52 year old male who presents to the emergency department for a fall. States that he fell 5 feet off of a ladder onto rocks earlier today and landed on his right side. Currently having pain over the right rib cage, back, and right side of his head. Denies any loss of consciousness. Not taking any blood thinners. (Jazmin Sifuentes) 52-year-old male presents emergency Department with chief complaint of fall off ladder. He states that he was about 5 feet off the ground when he fell landing onto some rocks. He states that he hit his right side including his right-sided chest, abdomen and right side of his head. He states that he hit his head hard but did not lose consciousness. He is not on blood thinners. Denies significant headache at this time. He reports shortness of breath and lightheadedness when he stands up. He has been able to ambulate since the event. (Zoila Nam) - Related Data Home Medications Medication Instructions Recorded Confirmed Fluticasone Nasal [place] [Flonase 1 spr EA NOSTRIL DAILY 09/26/19 05/21/23 Nasal [place]] Aspirin EC [Ecotrin Low Dose] 81 mg PO DAILY 11/19/22 05/21/23 Rosuvastatin [Crestor] 20 mg PO DAILY 11/19/22 05/21/23 Valsartan/Hydrochlorothiazide 1 tab PO DAILY 11/19/22 05/21/23 [Valsartan-Hctz 320-25 mg Tab] traMADol HCL 50 mg PO TID PRN 11/19/22 05/21/23 Acetaminophen Tab [Tylenol Tab] 1,000 mg PO Q6HR PRN 05/21/23 05/21/23 Cyclobenzaprine [Flexeril] 10 mg PO HS 05/21/23 05/21/23 methylPREDNISolone Dose Pack See Taper PO DIRECTED 05/21/23 05/21/23 [Medrol Dose Pack] Allergies Allergy/AdvReac Type Severity Reaction Status Date / Time Sulfa (Sulfonamide Allergy Rash/Hives Verified 05/21/23 17:51 Antibiotics) sulfamethoxazole Allergy HIVES, Verified 05/21/23 17:51 [From Bactrim] ITCHING trimethoprim [From Bactrim] Allergy HIVES, Verified 05/21/23 17:51 ITCHING Review of Systems ROS Other: All systems not noted in ROS Statement are negative. <Jazmin Sifuentes - Last Filed: 05/21/23 13:35> ROS Other: All systems not noted in ROS Statement are negative. <Zoila Nam - Last Filed: 05/22/23 00:32> ROS Statement: Those systems with pertinent positive or pertinent negative responses have been documented in the HPI. Past Medical History Past Medical History: Hypertension History of Any Multi-Drug Resistant Organisms: None Reported Past Surgical History: No Surgical Hx Reported Additional Past Surgical History / Comment(s): vasectomy, lasik eye surgery Past Drug Use History: None Reported <Jazmin Sifuentes - Last Filed: 05/21/23 13:35> General Exam <Jazmin Sifuentes - Last Filed: 05/21/23 13:35> Limitations: no limitations General appearance: alert Head exam: Present: atraumatic, normocephalic, normal inspection Eye exam: Present: normal appearance, PERRL, EOMI. Absent: scleral icterus, conjunctival injection, periorbital swelling ENT exam: Present: normal exam, mucous membranes moist, TM's normal bilaterally, normal external ear exam Neck exam: Present: normal inspection, full ROM. Absent: tenderness, meningismus, lymphadenopathy Respiratory exam: Present: normal lung sounds bilaterally, chest wall tenderness. Absent: respiratory distress, wheezes, rales, rhonchi, stridor Cardiovascular Exam: Present: regular rate, normal rhythm, normal heart sounds. Absent: systolic murmur, diastolic murmur, rubs, gallop, clicks GI/Abdominal exam: Present: soft, normal bowel sounds. Absent: distended, tenderness, guarding, rebound, rigid Extremities exam: Present: normal inspection, full ROM, normal capillary refill. Absent: tenderness, pedal edema, joint swelling, calf tenderness Back exam: Present: tenderness Neurological exam: Present: alert, oriented X3, CN II-XII intact Psychiatric exam: Present: normal affect, normal mood Skin exam: Present: warm, dry, intact, normal color. Absent: rash <Zoila Nam - Last Filed: 05/22/23 00:32> - General Exam Comments Initial Comments: Visual Physical Exam Vital signs reviewed General: Well-appearing, nontoxic, no acute distress. Head: Normocephalic, atraumatic Eyes: PERRLA, EOMI ENT: Airway patent Chest: Nonlabored breathing Skin: No visual rash, normal skin tone Neuro: Alert and oriented 3 Musculoskeletal: No gross abnormalities I performed the QuickNote portion of this chart. Signed Jazmin Sifuentes PA-C. (Jazmin Sifuentes) Course Vital Signs 05/21/23 05/21/23 13:31 21:07 Temperature 98 F 98.7 F Pulse Rate 78 72 Respiratory 16 16 Rate Blood Pressure 112/74 118/80 O2 Sat by Pulse 98 97 Oximetry Medical Decision Making - Lab Data Result diagrams: 05/21/23 18:51 05/21/23 19:46 <Zoila Nam - Last Filed: 05/22/23 00:32> - Medical Decision Making Was pt. sent in by a medical professional or institution (BERTA Jorgensen, MODELING AGENT, urgent care, hospital, or usp...) When possible be specific @ -No Did you speak to anyone other than the patient for history (EMS, parent, family, police, friend...)? What history was obtained from this source @ -No Did you review nursing and triage notes (agree or disagree)? Why? @ -I reviewed and agree with nursing and triage notes Were old charts reviewed (outside hosp., previous admission, EMS record, old EKG, old radiological studies, urgent care reports/EKG's, usp records)? Report findings @ -No old charts were reviewed Differential Diagnosis (chest pain, altered mental status, abdominal pain women, abdominal pain men, vaginal bleeding, weakness, fever, dyspnea, syncope, headache, dizziness, GI bleed, back pain, seizure, CVA, palpatations, mental health, musculoskeletal)? @ -Differential Musculoskeletal Muscular strain, contusion, ligament sprain, fracture, arthritis, septic arthritis, bursitis, cellulitis, muscle spasm, nerve compression, DVT, arterial occlusion, herpes zoster, electrolyte abnormality, tumor.... This is not meant to be in all inclusive list EKG interpreted by me (3pts min.). @ -None X-rays interpreted by me (1pt min.). @ -X-ray lumbar spine shows no acute fracture dislocation X-ray thoracic spine shows no acute fracture dislocation X-ray ribs right shows fractures of right posterior lateral ribs 4 and 5, no pneumothorax CT interpreted by me (1pt min.). @ -CT brain and C-spine shows no acute intracranial abnormality, scalp contusion; no acute fracture or malalignment of the cervical spine CT chest and pelvis shows mildly displaced fractures of right lateral fourth and fifth ribs, secondary hypoventilation with prominent basilar atelectasis; none fractures of the right elbow 2 and L3 transverse processes, large disc herniation at L3-L4 U/S interpreted by me (1pt. min.). @ -None done What testing was considered but not performed or refused? (CT, X-rays, U/S, labs)? Why? @ -None What meds were considered but not given or refused? Why? @ -None Did you discuss the management of the patient with other professionals (professionals i.e. , PA, MODELING AGENT, lab, RT, psych nurse, social science manager, ramp jockey, t eacher, disabilities services officer, disease case manager)? Give summary @ -Management discussed with Dr. Gallo who recommends LSO Management discussed with Dr. Suero who is accepting of the admission Management discussed with Dr. Zambrano for medicine consult Was smoking cessation discussed for >3mins.? @ -No Was critical care preformed (if so, how long)? @ -No Were there social determinants of health that impacted care today? How? (Homelessness, low income, unemployed, alcoholism, drug addiction, trans portation, low edu. Level, literacy, decrease access to med. care, penitentiary, rehab)? @ -No Was there de-escalation of care discussed even if they declined (Discuss DNR or withdrawal of care, Hospice)? DNR status @ -No What co-morbidities impacted this encounter? (DM, HTN, Smoking, COPD, CAD, Cancer, CVA, ARF, Chemo, Hep., AIDS, mental health diagnosis, sleep apnea, morbid obesity)? @ -None Was patient admitted / discharged? Hospital course, mention meds given and route, prescriptions, significant lab abnormalities, going to OR and other pertinent info. @ -Admitted. Patient presented to the emergency department chief complaint of fall off a ladder. He reports pain to his chest wall and his right flank. Imaging was obtained which showed right rib fractures of ribs 4 and 5, L2 and L3 transverse process fractures. Patient given IM Dilaudid for pain control which did not improve his symptoms much. Patient then given IV Dilaudid and Toradol which improved his symptoms slightly. He reports that when he stands up he gets winded and lightheaded. Management was discussed with Dr. Gallo who recommends LSO and patient may follow up outpatient if otherwise stable. Case discussed with Dr. Suero who is accepting of the admission for pain control and dyspnea management. Patient stable at time of admission. Case discussed with Dr. Melissa Undiagnosed new problem with uncertain prognosis? @ -No Drug Therapy requiring intensive monitoring for toxicity (Heparin, Nitro, Insulin, Cardizem)? @ -No Were any procedures done? @ -No Diagnosis/symptom? @ -rib fractures, lumbar transverse process fractures Acute, or Chronic, or Acute on Chronic? @ -acute Uncomplicated (without systemic symptoms) or Complicated (systemic symptoms)? @ -uncomplicated Side effects of treatment? @ -No Exacerbation, Progression, or Severe Exacerbation? @ -No Poses a threat to life or bodily function? How? (Chest pain, [place], ME, pneumonia, PE, COPD, DKA, ARF, appy, cholecystitis, CVA, Diverticulitis, Homicidal, Suicidal, threat to staff... and all critical care pts) @ -No (Zoila Nam) - Lab Data Lab Results 05/21/23 05/21/23 Range/Units 18:51 19:46 WBC 12.8 H (3.8-10.6) k/uL RBC 4.55 (4.30-5.90) m/uL Hgb 14.8 (13.0-17.5) gm/dL Hct 43.3 (39.0-53.0) % MCV 95.3 (80.0-100.0) fL MCH 32.5 (25.0-35.0) pg MCHC 34.1 (31.0-37.0) g/dL RDW 12.7 (11.5-15.5) % Plt Count 289 (150-450) k/uL MPV 7.3 Neutrophils % 88 % Lymphocytes % 6 % Monocytes % 4 % Eosinophils % 1 % Basophils % 0 % Neutrophils # 11.2 H (1.3-7.7) k/uL Lymphocytes # 0.8 L (1.0-4.8) k/uL Monocytes # 0.5 (0-1.0) k/uL Eosinophils # 0.2 (0-0.7) k/uL Basophils # 0.0 (0-0.2) k/uL Sodium 136 L (137-145) mmol/L Potassium 4.5 (3.5-5.1) mmol/L Chloride 101 (98-107) mmol/L Carbon Dioxide 23 (22-30) mmol/L Anion Gap 12 mmol/L BUN 24 H (9-20) mg/dL Creatinine 0.74 (0.66-1.25) mg/dL Est GFR (CKD-EPI)AfAm >90 (>60 ml/min/1.73 sqM) Est GFR (CKD-EPI)NonAf >90 (>60 ml/min/1.73 sqM) Glucose 163 H (74-99) mg/dL Calcium 9.5 (8.4-10.2) mg/dL Total Bilirubin 0.8 (0.2-1.3) mg/dL AST 49 (17-59) U/L ALT 37 (4-49) U/L Alkaline Phosphatase 47 (38-126) U/L Total Protein 7.7 (6.3-8.2) g/dL Albumin 4.4 (3.5-5.0) g/dL Disposition <Jazmin iSfuentes - Last Filed: 05/21/23 13:35> Is patient prescribed a controlled substance at d/c from ED?: No <Zoila Nam - Last Filed: 05/22/23 00:32> Clinical Impression: Right rib fracture, Lumbar transverse process fracture Disposition: ADMITTED IP TO THIS [facility] Condition: Stable
--- NOTE | 2023-05-21 14:04 | XR ---
EXAMINATION TYPE: XR thoracic spine complete DATE OF EXAM: 05/21/2023 CLINICAL HISTORY: pain TECHNIQUE: Frontal, lateral, and swimmer's view of thoracic spine are obtained. COMPARISON: None. FINDINGS: Thoracic spine show satisfactory alignment without evidence of acute fracture or dislocatio n. Vertebral body heights are preserved. Moderate multilevel degenerative disc space narrowing and s pondylosis. Visualized ribs are unremarkable. IMPRESSION: No acute fracture or dislocation is seen in the thoracic spine. ICD 10 NO FRACTURE, INIT IAL EVALUATION
--- NOTE | 2023-05-21 14:04 | XR ---
EXAMINATION TYPE: XR lumbar spine 2 or 3V DATE OF EXAM: 05/21/2023 CLINICAL HISTORY: pain TECHNIQUE: Three views of the lumbar spine are submitted. COMPARISON: 10/21/2022 FINDINGS: There are 5 lumbar type vertebral bodies identified. The lumbar spine shows satisfactory alignment w ithout evidence of acute fracture or dislocation. Vertebral body heights are within normal limits. Th e right with anterolisthesis L5 on S1 is stable and unchanged from prior study with bilateral spondyl olysis. Moderate degenerative narrowing L5-S1. The overlying soft tissue appears unremarkable. Susp ect left renal calculus. IMPRESSION: No acute fracture or dislocation is seen in the lumbar spine. ICD 10 NO FRACTURE, INITIAL EVALUATION
--- NOTE | 2023-05-21 14:07 | XR ---
EXAMINATION TYPE: XR ribs RT w pa chest xray DATE OF EXAM: 05/21/2023 COMPARISON: 05/21/2023 HISTORY: Pain TECHNIQUE: Single view of the chest 4 views of the ribs are submitted. FINDINGS: The lungs are clear. No Evidence for pneumothorax. No evidence for focal contusion. Medi astinal structures are midline. Evaluation of the ribs demonstrates fractures of the right posterola teral ribs 4 and 5. IMPRESSION: fractures of the right posterolateral ribs 4 and 5. No pneumothorax seen.
[2023-05-21] MEDS ORDERED: HYDROmorphone 1 MG/ML 1 ML SYRINGE IM STA (16:25)
[2023-05-21] MEDS ORDERED: LIDOCAINE 5% PATCH TOPICAL STA (16:27)
--- NOTE | 2023-05-21 18:17 | CT ---
EXAMINATION TYPE: CT brain lindaine wo con DATE OF EXAM: 05/21/2023 COMPARISON: None HISTORY: 52-year-old male Pt fell 5ft from ladder onto rocks. Pt c/o right side head, neck and flank pain. CT DLP: Combined DLP of 4360.5 mGycm Automated exposure control for dose reduction was used. Technique: Examination of the head was done in axial plane without intravenous contrast. Coronal and sagittal reconstructions performed. CT of the cervical spine was obtained in axial plane without intravenous injection of contrast mater ial. Coronal and sagittal reformatted images were obtained from the axial views for evaluation of f ractures, spinal alignment and canal. FINDINGS: Head: There is no evidence of acute intracranial hemorrhage, acute ischemic changes, mass, mass-effect, or extra-axial fluid collection. There is no effacement of cerebral sulci or basal subarachnoid cister ns. There is no hydrocephalus. There is no midline shift. Mackey-white matter distinction is preserv ed. There is soft tissue swelling along the right lateral scalp. No underlying calvarial fracture. Rightward nasal septal deviation. Paranasal sinuses and mastoid air cells are well pneumatized. Orbit s and globes are intact. Cervical spine: No craniocervical junction abnormality, predental space widening, or prevertebral soft tissue swellin g. Mild degenerative change of the C1 dens articulation. No acute fracture seen of the cervical spine. Moderate spondylotic mid to lower cervical spine. Alignment maintained. Disc osteophyte complex likely contributes to mild narrowing of the spinal canal and C6-C7. Moderate bilateral neuroforaminal narrowing C5-C6 and C6-C7. Sagittal and coronal reformatted images confirm above findings. COMBINED IMPRESSION: 1. Right lateral scalp contusion. No underlying calvarial fracture. No acute intracranial abnormality seen. 2. No acute fracture or malalignment of the cervical spine. Moderate spondylotic change mid to lower cervical spine.
[2023-05-21] MEDS ORDERED: HYDROmorphone 0.5 MG/0.5 ML SYRINGE IVP STA (18:23)
--- NOTE | 2023-05-21 18:25 | CT ---
EXAMINATION TYPE: CT ChestAbdPelvis w con DATE OF EXAM: 05/21/2023 COMPARISON: CT chest 09/27/2019 HISTORY: 52-year-old male Pt fell 5ft from ladder onto rocks. Pt c/o right side head, neck and flank pain. TECHNIQUE: Contiguous axial scanning of the chest, abdomen, and pelvis performed with IV Contrast, pa tient injected with 100 ml mL of Isovue 300. Delayed images through the kidneys were obtained. Perdue l/sagittal reconstructions performed. CT DLP: Combined DLP of 4360.5 mGycm Automated exposure control for dose reduction was used. FINDINGS: Chest: Heart normal size without pericardial effusion. Aorta normal caliber with one configuration to the aortic arch. No evidence for aortic dissection or mediastinal hematoma. No thoracic lymphadenopathy by CT size criteria. Diminished lung volumes. Prominent bands of atelectasis in the lower lungs. No consolidation, pleural effusion, or pneumothorax. ABDOMEN: Liver borderline in size at 17.0 cm with low-attenuation suggesting fatty infiltration. No focal live r lesion. Portal venous system is patent. No biliary ductal dilatation. Gallbladder, adrenal glands, spleen, and pancreas within normal limits. A couple benign renal cortical cysts measuring up to 2.0 cm there is symmetric uptake and excretion o f contrast from the kidneys. There is a nonobstructive 8 mm stone within the left kidney. No dilated small bowel, free fluid, or free air. No mesenteric or retroperitoneal lymphadenopathy. Normal appendix. Possible wording. Lower descending and sigmoid colonic diverticulosis. Mildly redund ant sigmoid colon. No pericolonic inflammatory change. Pelvis: Bladder urine distended. No abnormal fluid collection in the pelvis or pelvic lymphadenopathy. Bones: Mild degenerative change left hip. Mild degenerative change right SI joint. Bilateral L5 pars defects with grade 2 anterolisthesis L5-S1. There is dish within the mid to lower t horacic spine extending into the upper lumbar spine. Advanced hypertrophic facet arthropathy mid to l ower lumbar spine. Large disc extrusion at L3-L4 may contribute to severe spinal canal stenosis, sagittal image 76. Renal lucencies at the right L2 and L3 transverse processes. In addition, there are mildly displaced fractures of the right lateral fourth and fifth fractures. IMPRESSION: 1. MILDLY DISPLACED FRACTURES OF THE RIGHT LATERAL FOURTH AND FIFTH RIBS. SECONDARY HYPOVENTILATION W ITH PROMINENT BASILAR ATELECTASIS. 2. NONDISPLACED FRACTURES OF THE RIGHT L2 AND L3 TRANSVERSE PROCESSES. 3. NOTE LARGE DISC HERNIATION AT L3-L4 WHICH MAY CONTRIBUTE TO SEVERE FOCAL SPINAL CANAL STENOSIS. CO RRELATE WITH PATIENT'S SYMPTOMS. 4. BILATERAL L5 PARS DEFECTS WITH GRADE 2 ANTEROLISTHESIS L5-S1. DISH IN THE MID TO LOWER THORACIC SP INE WITHOUT EVIDENT FRACTURE HERE.
[2023-05-21] MEDS ORDERED: KETOROLAC 15 MG/ML 1 ML VIAL IVP STA (18:37)
[2023-05-21 19:06] LABS: Basophils % (A) 0 %; Eosinophils # (A) 0.2 k/uL (0-0.7); Eosinophils % (A) 1 %; HCT 43.3 % (39.0-53.0); HGB 14.8 gm/dL (13.0-17.5); Lymphocytes # (A) 0.8 k/uL (1.0-4.8); Lymphocytes % (A) 6 %; MCH 32.5 pg (25.0-35.0); MCHC 34.1 g/dL (31.0-37.0); MCV 95.3 fL (80.0-100.0); Mean Platelet Volume 7.3; Monocytes # (A) 0.5 k/uL (0-1.0); Monocytes % (A) 4 %; Neutrophils # (A) 11.2 k/uL (1.3-7.7); Neutrophils % (A) 88 %; Platelet Count 289 k/uL (150-450); RBC 4.55 m/uL (4.30-5.90); RDW 12.7 % (11.5-15.5); WBC 12.8 k/uL (3.8-10.6)
[2023-05-21] MEDS ORDERED: NALOXONE 0.4 MG/ML 1 ML VIAL IV PRN (19:57)
[2023-05-21] MEDS ORDERED: MELATONIN 3 MG TABLET PO PRN (19:57)
[2023-05-21] MEDS ORDERED: KETOROLAC 15 MG/ML 1 ML VIAL IVP PRN (19:57)
[2023-05-21] MEDS ORDERED: ONDANSETRON 4 MG/2 ML VIAL IVP PRN (19:57)
[2023-05-21] MEDS ORDERED: ACETAMINOPHEN TAB 325 MG TAB PO PRN (19:57)
[2023-05-21] MEDS ORDERED: IBUPROFEN 400 MG TAB PO PRN (19:57)
[2023-05-21] MEDS: SODIUM CHLORIDE 0.9% 1,000 ML IV SCH (20:05)
[2023-05-21 20:15] LABS: ALT 37 U/L (4-49); African American GFR (CKD) >90 (>60 ml/min/1.73 sqM); Anion Gap 12 mmol/L; Blood Urea Nitrogen 24 mg/dL (9-20); Calcium 9.5 mg/dL (8.4-10.2); Carbon Dioxide 23 mmol/L (22-30); Chloride 101 mmol/L (98-107); Glucose 163 mg/dL (74-99); Non-African American GFR(CKD) >90 (>60 ml/min/1.73 sqM); Sodium 136 mmol/L (137-145); Total Bilirubin 0.8 mg/dL (0.2-1.3)
[2023-05-21 20:30] LABS: AST 49 U/L (17-59); Albumin 4.4 g/dL (3.5-5.0); Alkaline Phosphatase 47 U/L (38-126); Potassium 4.5 mmol/L (3.5-5.1); Total Protein 7.7 g/dL (6.3-8.2)
[2023-05-21] MEDS: HYDROmorphone 1 MG/ML 1 ML SYRINGE IVP PRN (21:27)
[2023-05-21] MEDS ORDERED: traMADol 50 MG TAB PO PRN (22:44)
--- NOTE | 2023-05-22 00:02 | P.CONS ---
History of Present Illness - Reason for Consult Consult date: 05/21/23 - History of Present Illness Patient is a 52-year-old male with a PMH of hypertension and hyperlipidemia who presented to the emergency room after a fall. Patient reports he was cleaning his gutters up on a ladder when he lost his balance, falling roughly 5 feet down onto racks hitting the right side of his chest. He immediately had severe pain at the right lateral chest and also struck his right side of his head. He denied losing consciousness. Reports that the pain is significantly improved at the time of interview, now only with deep inspiration. Denied experiencing fever, chills, cough, nausea, vomiting, abdominal pain, diarrhea. Reports compliance with his medications at home. Patient initiated on Medrol Dosepak by PCP earlier today prior to him falling. He was seeing the PCP for a fall he sustained last week when he slipped on his roof and landed on his R lateral chest. He was seeing the PCP for persistent pain. In the emergency room, CT chest/abdomen/pelvis revealed mildly displaced fractures of the right lateral fourth and fifth ribs with nondisplaced fractures of the right L2 and L3 transverse processes with large disc herniation at L3-L4. Head and cervical spine CT revealed a right lateral scalp contusion without any additional acute abnormalities. Laboratory evaluation was remarkable for leukocytosis of 12.8, sodium 136, BUN 24, creatinine 0.74, and glucose 163 ED documentation reviewed and case discussed with ED provider. Review of systems: Pertinent positives and negatives as discussed in HPI, a complete review of systems was performed and all other systems are negative. Physical examination: Vital signs reviewed General: non toxic, no distress, appears at stated age, obese Derm: no unusual rashes/lesions, warm Head: atraumatic, normocephalic, symmetric Eyes: EOMI, no lid lag, anicteric sclera, pupils equal round reactive to light ENT: Nose and ears atraumatic Neck: No cervical lymphadenopathy, trachea midline, supple Mouth: no lip lesion, mucus membranes moist Cardiovascular: S1S2 reg, no murmur, positive dorsalis pedis pulse bilateral, no edema Lungs: CTA bilateral, no rhonchi, no rales, no accessory muscle use Abdominal: soft, nontender to palpation, no guarding Ext: muscle strength 5 out of 5 in all 4 extremities grossly, no gross muscle atrophy, no contractures, right lateral chest wall tenderness on palpation Neuro: CN II-XI grossly intact, no gross focal neuro deficits Psych: Alert, oriented, appropriate affect Assessment: Hyperglycemia, without diagnosis of type II DM Leukocytosis, likely due to acute stressor, no sign of active infection at this time Prerenal azotemia Hyponatremia Chronic conditions: Hypertension, hyperlipidemia Acute traumatic right rib fractures with lumbar transverse processes fractures of L2 and L3 Imaging: In the emergency room, CT chest/abdomen/pelvis revealed mildly displaced fract ures of the right lateral fourth and fifth ribs with nondisplaced fractures of the right L2 and L3 transverse processes with large disc herniation at L3-L4. Head and cervical spine CT revealed a right lateral scalp contusion without any additional acute abnormalities. Data Review: Laboratory evaluation was remarkable for leukocytosis of 12.8, sodium 136, BUN 24, creatinine 0.74, and glucose 163 Plan: Obtain A1c Continue with IV fluids with normal saline 130 mL/h for now Monitor CBC and BMP Continue with the following home medications: -Aspirin 81 mg by mouth daily -Flexeril 10 mg by mouth daily at bedtime -Crestor 20 mg by mouth daily -Tramadol 50 mg by mouth 3 times a day when necessary -Valsartan/HCTZ 320-25 mg by mouth daily -Medrol dose pack taper dose Defer management of fractures, pain control and DVT prophylaxis to the primary surgery service We appreciate this opportunity to be involved in this patient's care. We will follow the patient with you. For any further questions, please not hesitate to contact the [facility] inpatient team. Past Medical History Past Medical History: Hypertension History of Any Multi-Drug Resistant Organisms: None Reported Past Surgical History: No Surgical Hx Reported Additional Past Surgical History / Comment(s): vasectomy, lasik eye surgery Past Drug Use History: None Reported Medications and Allergies Home Medications Medication Instructions Recorded Confirmed Type Fluticasone Nasal [place] [Flonase 1 spr EA NOSTRIL DAILY 09/26/19 05/21/23 History Nasal [place]] Aspirin EC [Ecotrin Low Dose] 81 mg PO DAILY 11/19/22 05/21/23 History Rosuvastatin [Crestor] 20 mg PO DAILY 11/19/22 05/21/23 History Valsartan/Hydrochlorothiazide 1 tab PO DAILY 11/19/22 05/21/23 History [Valsartan-Hctz 320-25 mg Tab] traMADol HCL 50 mg PO TID PRN 11/19/22 05/21/23 History Acetaminophen Tab [Tylenol Tab] 1,000 mg PO Q6HR PRN 05/21/23 05/21/23 History Cyclobenzaprine [Flexeril] 10 mg PO HS 05/21/23 05/21/23 History methylPREDNISolone Dose Pack See Taper PO DIRECTED 05/21/23 05/21/23 History [Medrol Dose Pack] Allergies Allergy/AdvReac Type Severity Reaction Status Date / Time Sulfa (Sulfonamide Allergy Rash/Hives Verified 05/21/23 17:51 Antibiotics) sulfamethoxazole Allergy HIVES, Verified 05/21/23 17:51 [From Bactrim] ITCHING trimethoprim [From Bactrim] Allergy HIVES, Verified 05/21/23 17:51 ITCHING Physical Exam Vitals: Vital Signs Temp Pulse Pulse Resp BP BP Pulse Ox 05/21/23 21:50 98.4 F 66 17 118/71 96 05/21/23 21:07 98.7 F 72 16 118/80 97 05/21/23 13:31 98 F 78 16 112/74 98 Intake and Output 05/21/23 05/21/23 05/22/23 14:59 22:59 06:59 Other: Weight 111.13 kg Results CBC & Chem 7: 05/21/23 18:51 05/21/23 19:46 Labs: Abnormal Lab Results - Last 24 Hours (Table) 05/21/23 05/21/23 Range/Units 18:51 19:46 WBC 12.8 H (3.8-10.6) k/uL Neutrophils # 11.2 H (1.3-7.7) k/uL Lymphocytes # 0.8 L (1.0-4.8) k/uL Sodium 136 L (137-145) mmol/L BUN 24 H (9-20) mg/dL Glucose 163 H (74-99) mg/dL
[2023-05-22] MEDS: SODIUM CHLORIDE 0.9% 1,000 ML IV SCH ×2 (01:08→12:26)
[2023-05-22] MEDS: HYDROmorphone 1 MG/ML 1 ML SYRINGE IVP PRN (05:31)
[2023-05-22 06:49] LABS: HCT 40.1 % (39.0-53.0); HGB 13.8 gm/dL (13.0-17.5); MCH 32.9 pg (25.0-35.0); MCHC 34.3 g/dL (31.0-37.0); MCV 95.8 fL (80.0-100.0); Mean Platelet Volume 7.2; Platelet Count 279 k/uL (150-450); RBC 4.19 m/uL (4.30-5.90); RDW 12.8 % (11.5-15.5); WBC 12.4 k/uL (3.8-10.6)
[2023-05-22 07:02] LABS: African American GFR (CKD) >90 (>60 ml/min/1.73 sqM); Anion Gap 9 mmol/L; Blood Urea Nitrogen 25 mg/dL (9-20); Calcium 9.2 mg/dL (8.4-10.2); Carbon Dioxide 25 mmol/L (22-30); Chloride 100 mmol/L (98-107); Glucose 107 mg/dL (74-99); Non-African American GFR(CKD) >90 (>60 ml/min/1.73 sqM); Potassium 3.6 mmol/L (3.5-5.1); Sodium 134 mmol/L (137-145)
[2023-05-22] MEDS ORDERED: HYDROcodone/APAP 5-325MG 1 EACH TAB PO PRN (07:41)
[2023-05-22] MEDS: HEPARIN SODIUM,PORCINE 5,000 UNIT/ML 1 ML VIAL SQ SCH ×2 (08:40→15:35)
[2023-05-22] MEDS ORDERED: methylPREDNISolone 4 MG TAB TAPER PO SCH (09:00)
[2023-05-22] MEDS ORDERED: ASPIRIN 81 MG PO SCH (09:00)
[2023-05-22] MEDS ORDERED: VALSARTAN 160 MG TAB PO SCH (09:00)
[2023-05-22] MEDS ORDERED: ATORVASTATIN 40 MG TAB PO SCH (09:00)
[2023-05-22] MEDS ORDERED: FLUTICASONE 50MCG/SPRAY NASAL 16GM EA NOSTRIL SCH (09:00)
[2023-05-22] MEDS ORDERED: hydroCHLOROthiazide 25 MG TAB PO SCH (09:00)
--- NOTE | 2023-05-22 09:10 | P.CNOR ---
History of Present Illness - [facility] Consult date: 05/22/23 Requesting physician: Zoila Nam Consult reason: fracture (Right L2 and L3 transverse process fractures), low garry k pain History of present illness: Patient is a very pleasant 52-year-old male well known to our service who is seen and examined at bedside for further evaluation of his lumbar spine. Patient sustained a fall yesterday, 05/21/2023, when he fell off a ladder lotus roximate 5 feet landing on his right side. He had increased right-sided rib and lumbar pain at that time. She presented to [facility] emergency department for further evaluation. Multiple imaging modalities were taken at that time. He was found to have right-sided rib fractures at ribs 4 and 5. He was also found to have transverse process fractures on the right at L2 and L3. He does continue to have some right-sided rib pain and right sided lumbar pain but his pain has been fairly well controlled with medication since his admission to the hospital. He denies any other injuries at the time of the fall. He denies any new lower extremity weakness and radiculopathy bilaterally. Patient is known have significant changes at his lumbar spine. He is known to have L5 bilateral spondylolysis and L5-S1 spondylolisthesis with severe degenerative disc disease. He is also known to have a right-sided L3-4 herniated nucleus pulposus with right foraminal stenosis. He has had treatment in the outpatient setting with pain management and has undergone injections with significant benefit. Prior to his recent fall his symptoms have been well- controlled. He is not currently experiencing any lower extremity weakness or change in his lower extremity radiculopathy. He states his right lower extremity radiculopathy symptoms are currently well controlled. Patient is currently admitted to trauma surgery following his fall. Patient does feel he would be ready for discharge today if cleared. Patient's other medical diagnoses include hyperglycemia, hypertension, hyperlipidemia, hyponatremia, leukocytosis likely due to stressor, and prerenal azotemia. Past Medical History Past Medical History: Hypertension History of Any Multi-Drug Resistant Organisms: None Reported Past Surgical History: No Surgical Hx Reported Additional Past Surgical History / Comment(s): vasectomy, lasik eye surgery Past Anesthesia/Blood Transfusion Reactions: No Reported Reaction Past Drug Use History: None Reported Medications and Allergies Home Medications Medication Instructions Recorded Confirmed Type Fluticasone Nasal [place] [Flonase 1 spr EA NOSTRIL DAILY 09/26/19 05/21/23 History Nasal [place]] Aspirin EC [Ecotrin Low Dose] 81 mg PO DAILY 11/19/22 05/21/23 History Rosuvastatin [Crestor] 20 mg PO DAILY 11/19/22 05/21/23 History Valsartan/Hydrochlorothiazide 1 tab PO DAILY 11/19/22 05/21/23 History [Valsartan-Hctz 320-25 mg Tab] traMADol HCL 50 mg PO TID PRN 11/19/22 05/21/23 History Acetaminophen Tab [Tylenol Tab] 1,000 mg PO Q6HR PRN 05/21/23 05/21/23 History Cyclobenzaprine [Flexeril] 10 mg PO HS 05/21/23 05/21/23 History methylPREDNISolone Dose Pack See Taper PO DIRECTED 05/21/23 05/21/23 History [Medrol Dose Pack] Cyclobenzaprine [Flexeril] 10 mg PO TID PRN #90 tab 05/22/23 Rx HYDROcodone/APAP 5-325MG [[place] 5] 1 each PO Q8HR PRN #21 tab 05/22/23 Rx Allergies Allergy/AdvReac Type Severity Reaction Status Date / Time Sulfa (Sulfonamide Allergy Rash/Hives Verified 05/21/23 17:51 Antibiotics) sulfamethoxazole Allergy HIVES, Verified 05/21/23 17:51 [From Bactrim] ITCHING trimethoprim [From Bactrim] Allergy HIVES, Verified 05/21/23 17:51 ITCHING Physical Examination Physical exam: Patient is awake, alert, and oriented 3 Vital signs stable Good chest excursion with deep inspiration and expiration Examination of lumbar spine reveals skin is intact with no abrasions, lacerations, or bruises; no erythema, purulence or signs of infection Some pain with palpation over the paraspinal muscles of the right lumbar spine at approximately L2 and L3 Some right-sided rib pain of the upper ribs with palpation Dorsiflexion, plantarflexion, and extensor hallucis longus positive sustained bilaterally Lower extremity strength 5/5 bilaterally Good active range of motion of bilateral lower extremities independently against resistance without difficulty Straight leg test negative bilateral lower extremities No signs or symptoms of DVT; no calf pain No pain with internal and external rotation of the hips bilaterally Neurovascularly intact Results Pertinent studies: CT of the abdomen and pelvis reviewed for orthopedic purposes taken on 05/21/2023: Evidence of right-sided L2 and L3 nondisplaced transverse process fractures; L3-4 herniated nucleus pulposus; L3-4 and L4-5 degenerative disc disease; L5 bilateral spondylolysis; L5-S1 significant degenerative disc disease and grade 2 spondylolisthesis; right lateral fourth and fifth rib fractures mildly displaced X-rays of the thoracic spine taken on 05/21/2023: No obvious compression fracture deformity; multilevel thoracic degenerative disc disease with bridging anterior osteophytic spurring X-rays of the right ribs taken on 05/21/2023: Fractures at the right posterior lateral ribs 4 and 5; no pneumothorax seen X-rays of the lumbosacral spine taken on 05/21/2023: No obvious fracture laxmi ntified; L5 spondylolysis; L5-S1 severe degenerative disc disease and grade 2 spondylolisthesis - Labs Labs: Abnormal Lab Results - Last 24 Hours (Table) 05/21/23 05/21/23 05/22/23 Range/Units 18:51 19:46 06:14 WBC 12.8 H 12.4 H (3.8-10.6) k/uL RBC 4.19 L (4.30-5.90) m/uL Neutrophils # 11.2 H (1.3-7.7) k/uL Lymphocytes # 0.8 L (1.0-4.8) k/uL Sodium 136 L (137-145) mmol/L BUN 24 H (9-20) mg/dL Glucose 163 H (74-99) mg/dL 05/22/23 Range/Units 06:14 WBC (3.8-10.6) k/uL RBC (4.30-5.90) m/uL Neutrophils # (1.3-7.7) k/uL Lymphocytes # (1.0-4.8) k/uL Sodium 134 L (137-145) mmol/L BUN 25 H (9-20) mg/dL Glucose 107 H (74-99) mg/dL H & H 05/21/23 05/22/23 Range/Units 18:51 06:14 Hgb 14.8 13.8 (13.0-17.5) gm/dL Hct 43.3 40.1 (39.0-53.0) % Result Diagrams: 05/22/23 06:14 05/22/23 06:14 Assessment and Plan Assessment: Assessment: Status post fall from ladder, 5 feet Right posterior lateral ribs 4 and rib 5 fractures Acute traumatic low back pain status post fall Right L2 and L3 nondisplaced transverse process fractures L3-4 herniated nucleus pulposus Right lower extremity radiculopathy, currently well controlled L5 spondylolysis L5-S1 grade 2 spondylolisthesis L5-S1 severe degenerative disc disease L3-4 and L4-5 degenerative disc disease Thoracic degenerative disc disease with bridging anterior osteophytic spurring Hyperglycemia Hypertension Hyperlipidemia Hyponatremia Leukocytosis likely due to stressor Prerenal azotemia (1) Fall from ladder Current Visit: Yes Status: Acute Code(s): W11.XXXA - FALL ON AND FROM LADDER, INITIAL ENCOUNTER SNOMED Code(s): 81188945 (2) Spondylolisthesis at L5-S1 level Current Visit: Yes Status: Acute Code(s): M43.17 - SPONDYLOLISTHESIS, L UMBOSACRAL REGION SNOMED Code(s): 675567475 (3) Spondylolysis of lumbar region Current Visit: Yes Status: Acute Code(s): M43.06 - SPONDYLOLYSIS, LUMBAR REGION SNOMED Code(s): 951777860 (4) DDD (degenerative disc disease), lumbosacral Current Visit: Yes Status: Acute Code(s): M51.37 - OTHER INTERVERTEBRAL DISC DEGENERATION, LUMBOSACRAL REGION SNOMED Code(s): 81335246 (5) Thoracic degenerative disc disease Current Visit: Yes Status: Acute Code(s): M51.34 - OTHER INTERVERTEBRAL DISC DEGENERATION, THORACIC REGION SNOMED Code(s): 58471186 (6) Acute lumbar back pain Current Visit: Yes Status: Acute Code(s): M54.50 - LOW BACK PAIN, UNSPECIFIED SNOMED Code(s): 638839657 (7) Lumbar back pain with radiculopathy affecting right lower extremity Current Visit: Yes Status: Acute Code(s): M54.16 - RADICULOPATHY, LUMBAR REGION SNOMED Code(s): 944790149 (8) Hypertension Current Visit: Yes Status: Acute Code(s): I10 - ESSENTIAL (PRIMARY) HYPERTENSION SNOMED Code(s): 22720048 (9) Hyperlipidemia Current Visit: Yes Status: Acute Code(s): E78.5 - HYPERLIPIDEMIA, UNSPECIFIED SNOMED Code(s): 11418667 (10) Hyponatremia Current Visit: Yes Status: Acute Code(s): E87.1 - HYPO-OSMOLALITY AND HYPONATREMIA SNOMED Code(s): 67896872 (11) Leukocytosis Current Visit: Yes Status: Acute Code(s): D72.829 - ELEVATED WHITE BLOOD CELL COUNT, UNSPECIFIED SNOMED Code(s): 192092369 (12) Hyperglycemia Current Visit: Yes Status: Acute Code(s): R73.9 - HYPERGLYCEMIA, UNSPECIFIED SNOMED Code(s): 56068151 (13) Prerenal azotemia Current Visit: Yes Status: Acute Code(s): R79.89 - OTHER SPECIFIED ABNORMAL FINDINGS OF BLOOD CHEMISTRY SNOMED Code(s): 365646778 (14) Lumbar transverse process fracture Current Visit: Yes Status: Acute Code(s): S32.009A - UNSP FRACTURE OF UNSP LUMBAR VERTEBRA, INIT FOR CLOS FX SNOMED Code(s): 150883688 (15) Right rib fracture Current Visit: Yes Status: Acute Code(s): S22.31XA - FRACTURE OF ONE RIB, RIGHT SIDE, INIT FOR CLOS FX SNOMED Code(s): 38433243 Plan: Plan: 1. Patient is well-known to our service. Patient is known have significant changes at his lumbar spine. He is known to have L5 bilateral spondylolysis and L5-S1 spondylolisthesis with severe degenerative disc disease. He is also known to have a right-sided L3-4 herniated nucleus pulposus with right foraminal stenosis. He has had treatment in the outpatient setting with pain management and has undergone injections with significant benefit. Prior to his recent fall his symptoms have been well-controlled. He is not currently experiencing any lower extremity weakness or change in his lower extremity radiculopathy. He sta wilder his right lower extremity radiculopathy symptoms are currently well controlled. Currently, he is experiencing acute right-sided lumbar pain which correlates well with his nondisplaced transverse process fractures of L2 and L3. He also has right-sided rib fractures at ribs 4 and 5. After reviewing of imaging, physical examination the patient, and further discussion with the patient, will currently planned to continue with conservative treatment at this time. At this time we'll plan for bracing. A prescription has been written and provided to case management for a LSO brace. Once this brace is delivered and fitted appropriately, patient should wear this brace while sitting upright at greater than 45, during increase activities, during ambulation. Brace does not have to or while lying in bed or while bathing. Following fitting of this brace, patient is clear for discharge from an orthopedic spine standpoint. Following discharge, patient may follow-up with Omid Wray PA-C or Dr. Chance Retana at [facility] in approximately 2 weeks. In regards to his chronic changes at his lumbar spine, we are not currently planning for acute surgical intervention or treatment. We will continue to follow him in the outpatient setting for treatment and evaluation of his chronic degenerative changes as scheduled. From an orthopedic spine standpoint patient will be cleared for discharge today once his brace is delivered and fitted appropriately. MAPS has been reviewed today, 05/22/2023, with an Overall Overdose Risk Score of 440. A prescription has been written for hydrocodone 5 mg/325 mg, 1 tab, 3 times a day, as needed for acute pain, dispensed #21. He is also given a refill for cyclobenzaprine 10 mg, 1, 3 times a day, as needed for muscle spasm, dispensed #90. These medications are sent to the [facility] pharmacy located within [facility]. Patient was previously prescribed tramadol. He will hold this medication while on hydrocodone. 2. Patient will continue be seen by trauma surgery and medicine. Time with Patient: Greater than 30 (Including obtaining history, physical examination, reviewing of imaging, and dictation.)
[2023-05-22] MEDS: HYDROmorphone 0.5 MG/0.5 ML SYRINGE IVP PRN ×2 (10:10→15:34)
[2023-05-22] MEDS ORDERED: CYCLOBENZAPRINE 10 MG TAB PO PRN (10:19)
[2023-05-22] MEDS ORDERED: IBUPROFEN 800 MG TAB PO PRN (10:21)
[2023-05-22] MEDS ORDERED: LIDOCAINE 5% PATCH TOPICAL SCH (10:30)
--- NOTE | 2023-05-22 10:35 | P.PAINCN ---
History of Present Illness - Reason for Consult Consult date: 05/22/23 - Chief Complaint Low back pain,and chest wall pain - History of Present Illness This is 52 years old male, who was admitted to [facility] , after he fell from the ladder , patient had chest wall pain and low back pain, and the diagnostic study showed the patient had right-sided rib fractures and he had compression fracture of L2 and L3 transverse process and L3 4 herniated dis c, the pain is continuous in the chest wall which is increased with deep breathing, and he had low back pain with radiation to the lower extremity, he denies any change in the bowel movement or urination he denies any fever or night sweats,patient currently on Dilaudid IV and Motrin 400 mg every 6 hours , Flexeril 10 mg daily at bedtime , and [place] 5/325 every 6 hours , reported current medication helping him to control his pain Past Medical History Past Medical History: Hypertension History of Any Multi-Drug Resistant Organisms: None Reported Past Surgical History: No Surgical Hx Reported Additional Past Surgical History / Comment(s): vasectomy, lasik eye surgery Past Anesthesia/Blood Transfusion Reactions: No Reported Reaction Past Drug Use History: None Reported Medications and Allergies Home Medications Medication Instructions Recorded Confirmed Type Fluticasone Nasal [place] [Flonase 1 spr EA NOSTRIL DAILY 09/26/19 05/21/23 History Nasal [place]] Aspirin EC [Ecotrin Low Dose] 81 mg PO DAILY 11/19/22 05/21/23 History Rosuvastatin [Crestor] 20 mg PO DAILY 11/19/22 05/21/23 History Valsartan/Hydrochlorothiazide 1 tab PO DAILY 11/19/22 05/21/23 History [Valsartan-Hctz 320-25 mg Tab] traMADol HCL 50 mg PO TID PRN 11/19/22 05/21/23 History Acetaminophen Tab [Tylenol Tab] 1,000 mg PO Q6HR PRN 05/21/23 05/21/23 History Cyclobenzaprine [Flexeril] 10 mg PO HS 05/21/23 05/21/23 History methylPREDNISolone Dose Pack See Taper PO DIRECTED 05/21/23 05/21/23 History [Medrol Dose Pack] Cyclobenzaprine [Flexeril] 10 mg PO TID PRN #90 tab 05/22/23 Rx HYDROcodone/APAP 5-325MG [[place] 5] 1 each PO Q8HR PRN #21 tab 05/22/23 Rx Allergies Allergy/AdvReac Type Severity Reaction Status Date / Time Sulfa (Sulfonamide Allergy Rash/Hives Verified 05/21/23 17:51 Antibiotics) sulfamethoxazole Allergy HIVES, Verified 05/21/23 17:51 [From Bactrim] ITCHING trimethoprim [From Bactrim] Allergy HIVES, Verified 05/21/23 17:51 ITCHING Physical Exam Vitals: Vital Signs Temp Pulse Pulse Resp BP BP Pulse Ox 05/22/23 07:44 98.0 F 72 18 123/70 97 05/22/23 07:41 97 05/22/23 01:59 98.2 F 60 110/71 95 05/21/23 21:50 98.4 F 66 17 118/71 96 05/21/23 21:07 98.7 F 72 16 118/80 97 05/21/23 13:31 98 F 78 16 112/74 98 Intake and Output 05/21/23 05/22/23 05/22/23 22:59 06:59 14:59 Other: Voiding Method Toilet Toilet Urinal # Voids 1 Weight 111.13 kg Patient is awake, alert, and oriented 3 Vital signs stable Good chest excursion with deep inspiration and expiration Examination of lumbar spine reveals skin is intact with no abrasions, lacerations, or bruises; no erythema, purulence or signs of infection Some pain with palpation over the paraspinal muscles of the right lumbar spine at approximately L2 and L3 Some right-sided rib pain of the upper ribs with palpation Dorsiflexion, plantarflexion, and extensor hallucis longus positive sustained bilaterally Lower extremity strength 5/5 bilaterally Good active range of motion of bilateral lower extremities independently against resistance without difficulty Straight leg test negative bilateral lower extremities No signs or symptoms of DVT; no calf pain No pain with internal and external rotation of the hips bilaterally Neurovascularly intact Results CBC & Chem 7: 05/22/23 06:14 05/22/23 06:14 Labs: Abnormal Lab Results - Last 24 Hours (Table) 05/21/23 05/21/23 05/22/23 Range/Units 18:51 19:46 06:14 WBC 12.8 H 12.4 H (3.8-10.6) k/uL RBC 4.19 L (4.30-5.90) m/uL Neutrophils # 11.2 H (1.3-7.7) k/uL Lymphocytes # 0.8 L (1.0-4.8) k/uL Sodium 136 L (137-145) mmol/L BUN 24 H (9-20) mg/dL Glucose 163 H (74-99) mg/dL 05/22/23 Range/Units 06:14 WBC (3.8-10.6) k/uL RBC (4.30-5.90) m/uL Neutrophils # (1.3-7.7) k/uL Lymphocytes # (1.0-4.8) k/uL Sodium 134 L (137-145) mmol/L BUN 25 H (9-20) mg/dL Glucose 107 H (74-99) mg/dL Comments: CT of the abdomen and pelvis reviewed for orthopedic purposes taken on 05/21/2023: Evidence of right-sided L2 and L3 nondisplaced transverse process fractures; L3-4 herniated nucleus pulposus; L3-4 and L4-5 degenerative disc disease; L5 bilateral spondylolysis; L5-S1 significant degenerative disc disease and grade 2 spondylolisthesis; right lateral fourth and fifth rib fractures mildly displaced X-rays of the right ribs taken on 05/21/2023: Fractures at the right posterior lateral ribs 4 and 5; no pneumothorax seen Assessment and Plan Plan: Assessment and plan=[id number] chest wall pain secondary to right hip fractures. 2-acute on chronic low back pain. She had history of lumbar spondylosis and currently he is diagnosed with transverse process fracture at L2 3 and also patient had acute lumbar herniated disc at L3 4, Recommend to start patient on Lidoderm patch 5% to be applied to the right-sided chest wall , 12 h on ,12 h off, Recommend to change Motrin from 400 mg to 800 mg 3 times aday ,recommend to change Flexeril to 10 mg BID ,recommend continue [place] , he can follow up ,with his pain physician as an outpatient Time with Patient: Less than 30 PQRS Measure Charge Sheet - Pain Location Right Flank Non-Pharmacological Interventions: Darkened Room, Distraction, Pos ition/Reposition, Reduce Environmental Stimuli Pain Comment: pt declined prn pain meds at this time PQRS Narrative: Smoking Status Never smoker Blood Pressure [Right Arm] 123/70 Blood Pressure 118/80 Pain Intensity [Right Flank] 3 Pain Intensity 5 Pain Scale Used Numeric (1 - 10) Scale Used Numeric (1 - 10) Home Medications: Ambulatory Orders Fluticasone Nasal [place] [Flonase Nasal [place]] 1 spr EA NOSTRIL DAILY 09/26/19 Aspirin EC [Ecotrin Low Dose] 81 mg PO DAILY 11/19/22 Rosuvastatin [Crestor] 20 mg PO DAILY 11/19/22 Valsartan/Hydrochlorothiazide [Valsartan-Hctz 320-25 mg Tab] 1 tab PO DAILY 11/19/22 traMADol HCL 50 mg PO TID PRN 11/19/22 Acetaminophen Tab [Tylenol Tab] 1,000 mg PO Q6HR PRN 05/21/23 Cyclobenzaprine [Flexeril] 10 mg PO HS 05/21/23 methylPREDNISolone Dose Pack [Medrol Dose Pack] See Taper PO DIRECTED 05/21/23 Cyclobenzaprine [Flexeril] 10 mg PO TID PRN #90 tab 05/22/23 HYDROcodone/APAP 5-325MG [[place] 5] 1 each PO Q8HR PRN #21 tab 05/22/23
[2023-05-22 10:43] VITALS: BMI 34.2
--- NOTE | 2023-05-22 11:55 | P.GSHP ---
History of Present Illness H&P Date: 05/22/23 Chief Complaint: Fall 52-year-old male was working on his gutters when he fell and struck his right chest and right side of his head on the ground and on some decorative stone landscaping. Patient had right-sided chest pain. Came to the ER for evaluation. Underwent full workup including CT brain and C-spine chest abdomen and pelvis along with plain films. Workup demonstrates right-sided transverse process fractures and right-sided rib fractures. Patient with history of previous back issues and stenosis. Sees Dr. Retana as an outpatient. Does feel better today. Pain is less. Able to taken deeper breath. No loss of consciousness. No blood thinner use. Today's chest x-ray is pending. - Review of Systems Comment: The patient denies any acute changes in vision or hearing, no dysphagia or odynophagia, no dysuria or hematuria, no headache, no runny nose, no rectal bleeding or melena, no unexplained weight loss Past Medical History Past Medical History: Hypertension History of Any Multi-Drug Resistant Organisms: None Reported Past Surgical History: No Surgical Hx Reported Additional Past Surgical History / Comment(s): vasectomy, lasik eye surgery Past Anesthesia/Blood Transfusion Reactions: No Reported Reaction Past Drug Use History: None Reported Medications and Allergies Home Medications Medication Instructions Recorded Confirmed Type Fluticasone Nasal [place] [Flonase 1 spr EA NOSTRIL DAILY 09/26/19 05/21/23 History Nasal [place]] Aspirin EC [Ecotrin Low Dose] 81 mg PO DAILY 11/19/22 05/21/23 History Rosuvastatin [Crestor] 20 mg PO DAILY 11/19/22 05/21/23 History Valsartan/Hydrochlorothiazide 1 tab PO DAILY 11/19/22 05/21/23 History [Valsartan-Hctz 320-25 mg Tab] traMADol HCL 50 mg PO TID PRN 11/19/22 05/21/23 History Acetaminophen Tab [Tylenol Tab] 1,000 mg PO Q6HR PRN 05/21/23 05/21/23 History Cyclobenzaprine [Flexeril] 10 mg PO HS 05/21/23 05/21/23 History methylPREDNISolone Dose Pack See Taper PO DIRECTED 05/21/23 05/21/23 History [Medrol Dose Pack] Cyclobenzaprine [Flexeril] 10 mg PO TID PRN #90 tab 05/22/23 Rx HYDROcodone/APAP 5-325MG [[place] 5] 1 each PO Q8HR PRN #21 tab 05/22/23 Rx Allergies Allergy/AdvReac Type Severity Reaction Status Date / Time Sulfa (Sulfonamide Allergy Rash/Hives Verified 05/21/23 17:51 Antibiotics) sulfamethoxazole Allergy HIVES, Verified 05/21/23 17:51 [From Bactrim] ITCHING trimethoprim [From Bactrim] Allergy HIVES, Verified 05/21/23 17:51 ITCHING Surgical - Exam Vital Signs Temp Pulse Resp BP Pulse Ox 98 F 78 16 112/74 98 05/21/23 13:31 05/21/23 13:31 05/21/23 13:31 05/21/23 13:31 05/21/23 13:31 Physical exam: General: Well-developed, well-nourished HEENT: Normocephalic, sclerae nonicteric Chest: Right-sided chest tenderness, no crepitus Abdomen: Nontender, nondistended Extremities: No edema Neuro: Alert and oriented Results - Labs 05/22/23 06:14 05/22/23 06:14 Abnormal Lab Results - Last 24 Hours (Table) 05/21/23 05/21/23 05/22/23 Range/Units 18:51 19:46 06:14 WBC 12.8 H 12.4 H (3.8-10.6) k/uL RBC 4.19 L (4.30-5.90) m/uL Neutrophils # 11.2 H (1.3-7.7) k/uL Lymphocytes # 0.8 L (1.0-4.8) k/uL Sodium 136 L (137-145) mmol/L BUN 24 H (9-20) mg/dL Glucose 163 H (74-99) mg/dL Hemoglobin A1c (<=6.0) % 05/22/23 05/22/23 Range/Units 06:14 06:14 WBC (3.8-10.6) k/uL RBC (4.30-5.90) m/uL Neutrophils # (1.3-7.7) k/uL Lymphocytes # (1.0-4.8) k/uL Sodium 134 L (137-145) mmol/L BUN 25 H (9-20) mg/dL Glucose 107 H (74-99) mg/dL Hemoglobin A1c 6.4 H (<=6.0) % Diabetes panel 05/21/23 05/22/23 05/22/23 Range/Units 19:46 06:14 06:14 Sodium 136 L 134 L (137-145) mmol/L Potassium 4.5 3.6 (3.5-5.1) mmol/L Chloride 101 100 (98-107) mmol/L Carbon Dioxide 23 25 (22-30) mmol/L BUN 24 H 25 H (9-20) mg/dL Creatinine 0.74 0.84 (0.66-1.25) mg/dL Glucose 163 H 107 H (74-99) mg/dL Hemoglobin A1c 6.4 H (<=6.0) % Calcium 9.5 9.2 (8.4-10.2) mg/dL AST 49 (17-59) U/L ALT 37 (4-49) U/L Alkaline Phosphatase 47 (38-126) U/L Total Protein 7.7 (6.3-8.2) g/dL Albumin 4.4 (3.5-5.0) g/dL Calcium panel 05/21/23 05/22/23 Range/Units 19:46 06:14 Calcium 9.5 9.2 (8.4-10.2) mg/dL Albumin 4.4 (3.5-5.0) g/dL Pituitary panel 05/21/23 05/22/23 Range/Units 19:46 06:14 Sodium 136 L 134 L (137-145) mmol/L Potassium 4.5 3.6 (3.5-5.1) mmol/L Chloride 101 100 (98-107) mmol/L Carbon Dioxide 23 25 (22-30) mmol/L BUN 24 H 25 H (9-20) mg/dL Creatinine 0.74 0.84 (0.66-1.25) mg/dL Glucose 163 H 107 H (74-99) mg/dL Calcium 9.5 9.2 (8.4-10.2) mg/dL Adrenal panel 05/21/23 05/22/23 Range/Units 19:46 06:14 Sodium 136 L 134 L (137-145) mmol/L Potassium 4.5 3.6 (3.5-5.1) mmol/L Chloride 101 100 (98-107) mmol/L Carbon Dioxide 23 25 (22-30) mmol/L BUN 24 H 25 H (9-20) mg/dL Creatinine 0.74 0.84 (0.66-1.25) mg/dL Glucose 163 H 107 H (74-99) mg/dL Calcium 9.5 9.2 (8.4-10.2) mg/dL Total Bilirubin 0.8 (0.2-1.3) mg/dL AST 49 (17-59) U/L ALT 37 (4-49) U/L Alkaline Phosphatase 47 (38-126) U/L Total Protein 7.7 (6.3-8.2) g/dL Albumin 4.4 (3.5-5.0) g/dL Assessment and Plan (1) Fall from ladder Narrative/Plan: 52-year-old male with fall from ladder. Patient with subsequent right-sided rib fractures and transverse process fractures. Patient was kept for observation regarding his pulmonary status and pain control. Consults to medicine, pulmonary, pain management place. Consults orthopedic appreciated. Apparently a brace has been ordered. We'll see how the patient does to the afternoon. Possible discharge later today. Current Visit: Yes Status: Acute Code(s): W11.XXXA - FALL ON AND FROM LADDER, INITIAL ENCOUNTER SNOMED Code(s): 81533828
--- NOTE | 2023-05-22 12:08 | P.PN ---
Subjective Progress Note Date: 05/22/23 Patient is a 52-year-old male with a PMH of hypertension and hyperlipidemia who presented to the emergency room after a fall. Patient reports he was cleaning his gutters up on a ladder when he lost his balance, falling roughly 5 feet down onto racks hitting the right side of his chest. He immediately had severe pain at the right lateral chest and also struck his right side of his head. He denied losing consciousness. Reports that the pain is significantly improved at the time of interview, now only with deep inspiration. Denied experiencing fever, chills, cough, nausea, vomiting, abdominal pain, diarrhea. Reports compliance with his medications at home. Patient initiated on Medrol Dosepak by PCP earlier today prior to him falling. He was seeing the PCP for a fall he sustained last week when he slipped on his roof and landed on his R lateral chest. He was seeing the PCP for persistent pain. In the emergency room, CT chest/abdomen/pelvis revealed mildly displaced fractures of the right lateral fourth and fifth ribs with nondisplaced fractures of the right L2 and L3 transverse processes with large disc herniation at L3-L4. Head and cervical spine CT revealed a right lateral scalp contusion without any additional acute abnormalities. Laboratory evaluation was remarkable for leukocytosis of 12.8, sodium 136, BUN 24, creatinine 0.74, and glucose 163 05/22 Patient was seen and examined. No acute events overnight. Reports better right sided rib pain. Would like to go home later on today. CBC shows WBC 12.4. BMP Na 134, BUN 25, glucose 107. A1c 6.4. General: non toxic, no distress, appears at stated age, obese Derm: no unusual rashes/lesions, warm Head: atraumatic, normocephalic, symmetric Eyes: EOMI, no lid lag, anicteric sclera ENT: Nose and ears atraumatic Neck: No cervical lymphadenopathy, trachea midline, supple Cardiovascular: S1S2 reg, no murmur, no edema Lungs: CTA bilateral, no rhonchi, no rales, no accessory muscle use Ext: muscle strength 5 out of 5 in all 4 extremities grossly, no gross muscle atrophy, no contractures, right lateral chest wall tenderness on palpation Neuro: no gross focal neuro deficits Psych: Alert, oriented, appropriate affect PreDM with A1c 6.4 Leukocytosis, likely due to acute stressor, no sign of active infection at this time Prerenal azotemia Hyponatremia Chronic conditions: Hypertension, hyperlipidemia Acute traumatic right rib fractures with lumbar transverse processes fractures of L2 and L3 Continue with the following home medications: -Aspirin 81 mg by mouth daily -Flexeril 10 mg by mouth daily at bedtime -Crestor 20 mg by mouth daily -Tramadol 50 mg by mouth 3 times a day when necessary -Valsartan/HCTZ 320-25 mg by mouth daily -Medrol dose pack taper dose Defer management of fractures, pain control and DVT prophylaxis to the primary surgery service Encouraged to use IS hourly. Medically stable at this time. We appreciate this opportunity to be involved in this patient's care. We will follow the patient with you. For any further questions, please not hesitate to contact the sound inpatient team. Objective - Vital Signs Vital signs: Vital Signs Temp 98.0 F 05/22/23 07:44 Pulse 72 05/22/23 07:44 Resp 18 05/22/23 07:44 BP 123/70 05/22/23 07:44 Pulse Ox 97 05/22/23 07:44 FiO2 Intake & Output 05/21/23 05/22/23 05/22/23 18:59 06:59 18:59 Weight 111.13 kg 111.13 kg 111.13 kg Other: Voiding Method Toilet Toilet Urinal # Voids 1 - Labs CBC & Chem 7: 05/22/23 06:14 05/22/23 06:14 Labs: Abnormal Lab Results - Last 24 Hours (Table) 05/21/23 05/21/23 05/22/23 Range/Units 18:51 19:46 06:14 WBC 12.8 H 12.4 H (3.8-10.6) k/uL RBC 4.19 L (4.30-5.90) m/uL Neutrophils # 11.2 H (1.3-7.7) k/uL Lymphocytes # 0.8 L (1.0-4.8) k/uL Sodium 136 L (137-145) mmol/L BUN 24 H (9-20) mg/dL Glucose 163 H (74-99) mg/dL Hemoglobin A1c (<=6.0) % 05/22/23 05/22/23 Range/Units 06:14 06:14 WBC (3.8-10.6) k/uL RBC (4.30-5.90) m/uL Neutrophils # (1.3-7.7) k/uL Lymphocytes # (1.0-4.8) k/uL Sodium 134 L (137-145) mmol/L BUN 25 H (9-20) mg/dL Glucose 107 H (74-99) mg/dL Hemoglobin A1c 6.4 H (<=6.0) %
[2023-05-22 13:08] VITALS: BP 108/68; PULSE 71; RESP 17; TEMP 98.4
--- NOTE | 2023-05-22 15:10 | XR ---
EXAMINATION TYPE: XR chest 2V DATE OF EXAM: 05/22/2023 COMPARISON: 05/21/2023 HISTORY: 52-year-old male follow-up rib fractures TECHNIQUE: PA and lateral views FINDINGS: Marked hypoventilatory changes with elevated hemidiaphragms. Gassy colon is noted within the upper ab domen. Crowded vascular markings and strandy atelectasis at the left base. No torsten consolidation, pn eumothorax, or pleural effusion is seen. IMPRESSION: Marked hypoventilatory changes.
--- NOTE | 2023-05-22 15:49 | P.CNPUL ---
History of Present Illness Consult date: 05/22/23 Requesting physician: Mark Suero Reason for consult: abnormal CXR/CT Chief complaint: Right-sided chest pain status post fall History of present illness: This is a very pleasant 52-year-old male patient with a known history of hypertension, hyperlipidemia. He presented to the emergency room yesterday after sustaining a fall from a ladder at approximately 5 feet landing onto rocks on his right side. He had right-sided chest, back, and head pain. Lumbar spine x-rays revealed no evidence of fracture. Thoracic spine x-rays revealed no evidence of fracture. Rib x-rays revealed fractures of the posterior lateral ribs 4 and 5. No evidence of pneumothorax. CAT scan of the head and C-spine revealed a right lateral scalp contusion. No acute intracranial abnormalities. No acute fractures or malalignment of the cervical spine. Computed tomography scan of the chest abdomen pelvis revealed mildly displaced fractures of the right lateral fourth and fifth ribs. Basilar atelectasis. Nondisplaced fractures of the right L2 and L3 transverse processes. A large disc herniation at L3-L4 which may contribute to severe focal spinal canal stenosis. He has been seen by orthopedic and pain management or masses. He is seen today in consultation on the regular medical floor. He is currently resting fairly comfortably in bed. Awake and alert in no acute distress. He is maintaining O2 saturations in the upper 90s on room air. He's been afebrile. Hemodynamically stable. He is working well with the incentive spirometer. Review of Systems REVIEW OF SYSTEMS: CONSTITUTIONAL: Denies any recent significant weight loss or weight gain. EYES: Denies change in vision. EARS, NOSE, MOUTH, THROAT: Denies headaches, denies sore throat. CARDIOVASCULAR: Denies chest pain, palpitations or syncopal episodes. RESPIRATORY: Denies shortness of breath, cough, congestion or hemoptysis. GASTROINTESTINAL: Denies change in appetite, denies abdominal pain GENITOURINARY: Denies hematuria, denies infections. MUSKULOSKELETAL: Positive for right-sided chest back and head pain. INTEGUMENTARY: Denies rash, denies eczema. NEUROLOGICAL: Denies recent memory loss, no recent seizure activity. PSYCHIATRIC: Denies anxiety, denies depression. HEMATOLOGIC/LYMPHATIC: Denies anemia, denies enlarged lymph nodes. Past Medical History Past Medical History: Hypertension History of Any Multi-Drug Resistant Organisms: None Reported Past Surgical History: No Surgical Hx Reported Additional Past Surgical History / Comment(s): vasectomy, lasik eye surgery Past Anesthesia/Blood Transfusion Reactions: No Reported Reaction Past Drug Use History: None Reported Medications and Allergies Home Medications Medication Instructions Recorded Confirmed Type Fluticasone Nasal [place] [Flonase 1 spr EA NOSTRIL DAILY 09/26/19 05/21/23 History Nasal [place]] Aspirin EC [Ecotrin Low Dose] 81 mg PO DAILY 11/19/22 05/21/23 History Rosuvastatin [Crestor] 20 mg PO DAILY 11/19/22 05/21/23 History Valsartan/Hydrochlorothiazide 1 tab PO DAILY 11/19/22 05/21/23 History [Valsartan-Hctz 320-25 mg Tab] traMADol HCL 50 mg PO TID PRN 11/19/22 05/21/23 History Acetaminophen Tab [Tylenol] 1,000 mg PO Q6HR PRN 05/21/23 05/21/23 History Cyclobenzaprine [Flexeril] 10 mg PO HS 05/21/23 05/21/23 History methylPREDNISolone Dose Pack See Taper PO DIRECTED 05/21/23 05/21/23 History [Medrol Dose Pack] Cyclobenzaprine [Flexeril] 10 mg PO TID PRN #90 tab 05/22/23 Rx HYDROcodone/APAP 5-325MG [[place] 5] 1 each PO Q8HR PRN #21 tab 05/22/23 Rx Allergies Allergy/AdvReac Type Severity Reaction Status Date / Time Sulfa (Sulfonamide Allergy Rash/Hives Verified 05/21/23 17:51 Antibiotics) sulfamethoxazole Allergy HIVES, Verified 05/21/23 17:51 [From Bactrim] ITCHING trimethoprim [From Bactrim] Allergy HIVES, Verified 05/21/23 17:51 ITCHING Physical Exam Vitals: Vital Signs Temp Pulse Pulse Resp BP BP Pulse Ox 05/22/23 13:05 98.4 F 71 17 108/68 96 05/22/23 11:41 96 05/22/23 07:44 98.0 F 72 18 123/70 97 05/22/23 07:41 97 05/22/23 01:59 98.2 F 60 110/71 95 05/21/23 21:50 98.4 F 66 17 118/71 96 05/21/23 21:07 98.7 F 72 16 118/80 97 Intake and Output 05/22/23 05/22/23 05/22/23 06:59 14:59 22:59 Other: Voiding Method Toilet Toilet Urinal # Voids 1 Weight 111.13 kg GENERAL EXAM: Alert, 52-year-old gentleman, on room air, fairly comfortable in no apparent distress. HEAD: Normocephalic. EYES: Normal reaction of pupils, equal size. NOSE: Clear with pink turbinates. THROAT: No erythema or exudates. NECK: No masses, no JVD. CHEST: No chest wall deformity. LUNGS: Equal air entry with no crackles, wheeze, rhonchi or dullness. CVS: S1 and S2 normal with no audible murmur, regular rhythm. ABDOMEN: No hepatosplenomegaly, normal bowel sounds, no guarding or rigidity. SPINE: No scoliosis or deformity SKIN: No rashes CENTRAL NERVOUS SYSTEM: No focal deficits, tone is normal in all 4 extremities. EXTREMITIES: There is no peripheral edema. No clubbing, no cyanosis. Peripheral pulses are intact. Results - Laboratory Findings CBC and BMP: 05/22/23 06:14 05/22/23 06:14 Abnormal lab findings: Abnormal Labs 05/21/23 05/21/23 05/22/23 18:51 19:46 06:14 WBC 12.8 H 12.4 H RBC 4.19 L Neutrophils # 11.2 H Lymphocytes # 0.8 L Sodium 136 L BUN 24 H Glucose 163 H Hemoglobin A1c 05/22/23 05/22/23 06:14 06:14 WBC RBC Neutrophils # Lymphocytes # Sodium 134 L BUN 25 H Glucose 107 H Hemoglobin A1c 6.4 H - Diagnostic Findings Chest x-ray: image reviewed CT scan - chest: image reviewed Assessment and Plan Assessment: Right-sided chest pain secondary to trauma from fall 5 feet off a ladder onto rocks. Sustaining fractures of the right posterior lateral ribs 4 and 5. No evidence of pneumothorax. Nondisplaced fractures of the right L2 and L3 transverse processes. Large disc herniation at L3-L4. History of hypertension History of hyperlipidemia Plan: The patient was seen and evaluated Chest x-ray, CAT scans, labs and medications reviewed Continue to encourage increased use of the incentive spirometer Encourage cough and deep breathing exercises while splinting his chest Increase his activity as tolerated. Heparin for DVT prophylaxis. Being followed by pain management, orthopedics and general surgery We will continue to follow and make further recommendations based on his clinical status I have personally seen and examined the patient, performed the documentation and the assessment and plan as written. Number of minutes spent on the visit: 20.
[2023-05-22] MEDS ORDERED: CYCLOBENZAPRINE 10 MG TAB PO SCH (21:00)
== END 2023-05-22 18:45 | disposition home or self-care (01) ==
LOC: EC 12:50 → 4SSUR 20:01
PROVIDERS: ADMIT Surgery; ATTEND Surgery
DX: S22.41XA Multiple fractures of ribs, right side, initial encounter for closed fracture (principal); S32.029A Unspecified fracture of second lumbar vertebra, initial encounter for closed fracture; S32.039A Unspecified fracture of third lumbar vertebra, initial encounter for closed fracture; S00.03XA Contusion of scalp, initial encounter; W11.XXXA Fall on and from ladder, initial encounter; R73.9 Hyperglycemia, unspecified; I10 Essential (primary) hypertension; E78.5 Hyperlipidemia, unspecified; R73.03 Prediabetes; D72.829 Elevated white blood cell count, unspecified; E87.1 Hypo-osmolality and hyponatremia; M51.16 Intervertebral disc disorders with radiculopathy, lumbar region; M43.06 Spondylolysis, lumbar region; M51.17 Intervertebral disc disorders with radiculopathy, lumbosacral region; M51.34 Other intervertebral disc degeneration, thoracic region; E66.9 Obesity, unspecified; Z68.34 Body mass index [BMI] 34.0-34.9, adult; Z79.82 Long term (current) use of aspirin; Z79.899 Other long term (current) drug therapy; Z88.2 Allergy status to sulfonamides
CPT/HCPCS: 96376 ×3; 96372 ×2; 96374; 96375; 99285; 36415; 80053; 80048; 85025; 85027; 83036; 71101; 72072; 72100; 71046; 72125; 70450; 71260; 74177; G0378 ×2; J1644; J1170 ×4; J1885; J7509; Q9967

== ENCOUNTER → 2023-05-21 | Outpatient (CLI) | payer BC ==
--- NOTE | 2023-05-21 10:21 | XR ---
EXAMINATION TYPE: XR chest 2V DATE OF EXAM: 05/21/2023 COMPARISON: NONE HISTORY: Chest pain TECHNIQUE: Frontal and lateral views of the chest are obtained. FINDINGS: There is no focal air space opacity. No evidence for pneumothorax. No pleural effusion. The cardiac silhouette size is within normal limits. The osseous structures are grossly intact. IMPRESSION: 1. No acute cardiopulmonary process.
--- NOTE | 2023-05-21 10:23 | XR ---
EXAMINATION TYPE: XR ribs LT DATE OF EXAM: 05/21/2023 CLINICAL HISTORY: Pain, Fall Four views of the ribs fail demonstrate evidence for displaced rib fracture or secondary sign of rib fracture. Visualized lungs are clear. No evidence for pneumothorax. IMPRESSION: No displaced rib fractures seen. ICD 10 NO FRACTURE, INITIAL EVALUATION
== END | disposition home or self-care (01) ==
LOC: RADXRYALE 09:46
PROVIDERS: ATTEND Family Medicine
DX: R07.89 Other chest pain (principal); W19.XXXA Unspecified fall, initial encounter
CPT/HCPCS: 71046